=== PATIENT | female | born 1965 | race Caucasian/White ===

== ENCOUNTER 2016-12-13 21:11 | Emergency (ER) | payer SELFPAY ==
[2016-12-13] MEDS ORDERED: Sodium Chloride 0.9% 2.5 ML Syringe FLUSH PRN (21:20)
[2016-12-13] MEDS ORDERED: Sodium Chloride 0.9% 10 ML Syringe FLUSH PRN (21:20)
--- NOTE | 2016-12-13 21:24 | EDM.PDOC ---
ED HPI GENERAL MEDICAL PROBLEM - General Stated Complaint: PT HAS CHEST PAINS Time Seen by Provider: 12/13/16 21:14 - History of Present Illness INITIAL COMMENTS - FREE TEXT/NARRATIVE: HISTORY AND PHYSICAL: History of present illness: The patient is a 51-year-old female with a history of kidney stones and chronic nerve/back pain for which she takes medications and presents with complaints of mid chest pain that radiates to bilateral breast that started yesterday late morning. The patient states that the pain has been constant but waxes and wanes in intensity and is better when she lays down and worse when she does activities. She does have diaphoresis intermittently with it shortness of breath but no nausea or abdominal pain. The patient has never had a cardiac workup before. The patient states her mother had a heart attack but she is not sure of what age that was in there is no other family history. The patient smokes cigarettes but denies drug use. The patient denies any recent upper respiratory symptoms or trauma and says that the pain is difficult to describe but it is mid chest and radiates to bilateral breasts and to her back but not to her arms or jaw. Patient has been eating and drinking normally and did not take any specific medications for the pain. The patient states that she has a severe allergy to aspirin products causes her throat to swell and she "turns purple". The patient does not have any provider locally currently Please note that the patient is very vague about describing the character of the pain but she does rate it as an 8/10 in the location as above. Review of systems: As per history of present illness and below otherwise all systems reviewed and negative. Past medical history: As per history of present illness and as reviewed below otherwise noncontributory. Surgical history: As per history of present illness and as reviewed below otherwise noncontributory. Social history: No reported history of drug or alcohol abuse. Family history: As per history of present illness and as reviewed below otherwise noncontributory. Physical exam: Gen.: Well-developed well-nourished female who is nontoxic and speaking clearly and vital signs of the note by me. She is very restless in the bed to swell and rubbing it. HEENT: Atraumatic, normocephalic, negative for conjunctival pallor or scleral icterus, mucous membranes moist, throat clear, neck supple, nontender, trachea midline. Lungs: Clear to auscultation, breath sounds equal bilaterally, chest nontender. Heart: S1S2, regular, negative for clicks, rubs, or JVD. Abdomen: Soft, nondistended, nontender. NABS.Negative for masses or hepatosplenomegaly. Negative for costovertebral tenderness. Skin: No diaphoresis no rashes and normal turgor Genitourinary: Deferred. Rectal: Deferred. Extremities: Atraumatic, negative for cords or calf pain. Neurovascular unremarkable. No pedal edema or leg asymmetry Neuro: Awake, alert, oriented. Cranial nerves II through XII unremarkable. Cerebellum unremarkable. Motor and sensory unremarkable throughout. Exam nonfocal. Diagnostics: EKG which was compared to one performed on August 27, 2015, chest x-ray CBC CMP amylase lipase INR troponin rpt EKG Therapeutics: IV O2 monitor IV fluids if needed subungual nitroglycerin, aspirin will be held due to patient's stated severe allergy, morphine, nitro paste, Lovenox, NTG drip After all 3 sublingual nitroglycerin the patient states her pain went from an 8.5/10 to a 5/10 but she still very vague about the character and is actually resting comfortably with her eyes closed in the ED. We will give a dose of morphine and Nitropaste and reevaluate as well as a dose of Lovenox. 2225: I rediscussed with the patient all testing results which revealed a negative troponin and chest x-ray and a repeat EKG was unchanged from the first one. She now tells me her chest pain is a 3/10 but I did discuss with her that in light of the fact that she has EKG changes that are new since last year her age and risk factors that she would need to be transferred to [facility] for further evaluation and care as we do not have a gut snatcher on the weekend. The patient is somewhat upset with this care plan but is agreeable. She is aware that we will start her on a nitro drip and remove the Nitropaste. She currently looks very comfortable in the ED and vitals are stable. 2236: This case was discussed with Dr. Fritz in the ER at [facility] and he accepts the patient for transfer and is aware of our care plan for the transfer. Impression: Chest pain rule out ACS/unstable angina Definitive disposition and diagnosis as appropriate pending reevaluation and review of above. chest Pain Score (Numeric/FACES): 6 - Related Data Allergies Allergy/AdvReac Type Severity Reaction Status Date / Time aspirin Allergy Severe Difficulty Verified 08/02/15 18:49 Breathing cefaclor [From Ceclor] Allergy Severe Hives Verified 08/02/15 18:49 ibuprofen [From Motrin] Allergy Severe Difficulty Verified 08/02/15 18:49 Breathing naproxen Allergy Severe Difficulty Verified 08/02/15 18:49 Breathing NSAIDS (Non-Steroidal Allergy Severe Difficulty Verified 08/02/15 18:49 Anti-Inflamma Breathing Home Meds: Home Meds Acetaminophen [Tylenol] 325 mg PO ASDIRECTED PRN 07/31/15 [History] Omeprazole 20 mg PO DAILY 07/31/15 [History] Cyclobenzaprine [Flexeril] 10 mg PO DAILY 12/13/16 [History] Gabapentin [Neurontin] 300 mg PO DAILY 12/13/16 [History] Past Medical History HEENT History: Reports: None Cardiovascular History: Reports: None Respiratory History: Reports: None Gastrointestinal History: Reports: Cholelithiasis, GERD, Hiatal Hernia Genitourinary History: Reports: Renal Calculus DIRECTOR OF 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 APPLICATIONS History: Reports: Musculoskeletal History: Reports: Back Pain, Chronic Neurological History: Reports: None Psychiatric History: Reports: None Endocrine/Metabolic History: Reports: None Hematologic History: Reports: None Immunologic History: Reports: None Oncologic (Cancer) History: Reports: None Dermatologic History: Reports: None - Infectious Disease History Infectious Disease History: Reports: Chicken Pox, Measles - Past Surgical History GI Surgical History: Reports: Appendectomy, Cholecystectomy, Hernia Repair/Other Musculoskeletal Surgical History: Reports: Other (See Below) Social & Family History - Family History Family Medical History: Noncontributory HEENT: Reports: None - Tobacco Use Smoking Status *Q: Current Every Day Smoker Years of Tobacco use: 40 Packs/Tins Daily: 0.5 Used Tobacco, but Quit: No Second Hand Smoke Exposure: Yes - Alcohol Use Days Per Week of Alcohol Use: 0 - Recreational Drug Use Recreational Drug Use: No Drug Use in Last 12 Months: No ED ROS GENERAL - Review of Systems Review Of Systems: ROS reveals no pertinent complaints other than HPI. ED EXAM, GENERAL - Physical Exam Exam: See Below (See dictation) Course - Vital Signs Last Recorded V/S: Last Vital Signs Temp 36.7 C 12/13/16 21:19 Pulse 83 12/13/16 22:34 Resp 17 12/13/16 22:34 BP 118/76 12/13/16 22:34 Pulse Ox 96 12/13/16 22:34 - Orders/Labs/Meds Orders: Active Orders 24 hr Category Date Time Status Cardiac Monitoring [RC] . DIRECTED Care 12/13/16 21:19 Active Communication Order [RC] STAT Care 12/13/16 22:30 Active EKG Documentation Completion [RC] STAT Care 12/13/16 21:19 Active EKG Documentation Completion [RC] STAT Care 12/13/16 22:04 Active Oxygen Therapy, ED [RC] ASDIRECTED Care 12/13/16 21:19 Active Pulse Oximetry [RC] ASDIRECTED Care 12/13/16 21:19 Active Chest 1V Frontal [CR] Stat Exams 12/13/16 21:20 Taken Nitroglycerin/D5W [Nitroglycerin 25 MG/D5W 250 ML] 250 Med 12/13/16 22:45 Ordered ml IV TITRATE Sodium Chloride 0.9% [Normal Saline] 1,000 ml Med 12/13/16 21:45 Active IV ASDIRECTED Sodium Chloride 0.9% [Saline Flush] Med 12/13/16 21:20 Active 10 ml FLUSH ASDIRECTED PRN Sodium Chloride 0.9% [Saline Flush] Med 12/13/16 21:20 Active 2.5 ml FLUSH ASDIRECTED PRN Saline Lock Insert [OM.PC] Stat Oth 12/13/16 21:19 Ordered Medication Orders Sodium Chloride (Normal Saline) 1,000 mls @ 125 mls/hr IV ASDIRECTED ROBB Last Admin: 12/13/16 21:36 Dose: 125 mls/hr Nitroglycerin/Dextrose (Nitroglycerin 25 Mg/D5w 250 Ml) 250 mls @ 3 mls/hr IV TITRATE ROBB PRN Reason: 5 MCG/MIN Sodium Chloride (Saline Flush) 10 ml FLUSH ASDIRECTED PRN PRN Reason: Keep Vein Open Last Admin: 12/13/16 21:41 Dose: 10 ml Sodium Chloride (Saline Flush) 2.5 ml FLUSH ASDIRECTED PRN PRN Reason: Keep Vein Open Last Admin: 12/13/16 21:41 Dose: 2.5 ml Labs: Laboratory Tests 12/13/16 12/13/16 12/13/16 Range/Units 21:22 21:22 21:22 WBC 10.88 (4.0-11.0) K/uL RBC 4.84 (4.30-5.90) M/uL Hgb 15.0 (12.0-16.0) g/dL Hct 43.3 (36.0-46.0) % MCV 89.5 (80.0-98.0) fL MCH 31.0 (27.0-32.0) pg MCHC 34.6 (31.0-37.0) g/dL RDW Std Deviation 45.5 (28.0-62.0) fl RDW Coeff of Ingrid 14 (11.0-15.0) % Plt Count 278 (150-400) K/uL MPV 9.60 (7.40-12.00) fL Neut % (Auto) 66.9 (48.0-80.0) % Lymph % (Auto) 25.8 (16.0-40.0) % [place] % (Auto) 5.8 (0.0-15.0) % Eos % (Auto) 1.3 (0.0-7.0) % Baso % (Auto) 0.2 (0.0-1.5) % Neut # (Auto) 7.3 H (1.4-5.7) K/uL Lymph # (Auto) 2.8 H (0.6-2.4) K/uL [place] # (Auto) 0.6 (0.0-0.8) K/uL Eos # (Auto) 0.1 (0.0-0.7) K/uL Baso # (Auto) 0.0 (0.0-0.1) K/uL Nucleated RBC % 0.0 /100WBC Nucleated RBCs # 0 K/uL INR 0.98 (0.86-1.11) Sodium 141 (136-146) mmol/L Potassium 3.9 (3.5-5.1) mmol/L Chloride 107 (98-110) mmol/L Carbon Dioxide 25 (21-31) mmol/L BUN 20 (6.0-23.0) mg/dL Creatinine 0.8 (0.6-1.5) mg/dL Est Cr Clr Drug Dosing 70.23 mL/min Estimated GFR (MDRD) > 60.0 ml/min Glucose 117 H (60-110) mg/dL Calcium 8.9 (8.8-10.8) mg/dL Total Bilirubin 0.4 (0.1-1.5) mg/dL AST 14 (5-40) IU/L ALT 12 (8-54) IU/L Alkaline Phosphatase 136 (40-150) Troponin I (0.0-0.29) NG/ML Total Protein 7.4 (6.0-8.0) g/dL Albumin 4.1 (3.5-5.0) g/dL Globulin 3.3 (2.0-3.5) g/dL Albumin/Globulin Ratio 1.2 L (1.3-2.8) Amylase 51 (10-90) U/L Lipase 10 (7-80) U/L 12/13/16 Range/Units 21:22 WBC (4.0-11.0) K/uL RBC (4.30-5.90) M/uL Hgb (12.0-16.0) g/dL Hct (36.0-46.0) % MCV (80.0-98.0) fL MCH (27.0-32.0) pg MCHC (31.0-37.0) g/dL RDW Std Deviation (28.0-62.0) fl RDW Coeff of Ingrid (11.0-15.0) % Plt Count (150-400) K/uL MPV (7.40-12.00) fL Neut % (Auto) (48.0-80.0) % Lymph % (Auto) (16.0-40.0) % [place] % (Auto) (0.0-15.0) % Eos % (Auto) (0.0-7.0) % Baso % (Auto) (0.0-1.5) % Neut # (Auto) (1.4-5.7) K/uL Lymph # (Auto) (0.6-2.4) K/uL [place] # (Auto) (0.0-0.8) K/uL Eos # (Auto) (0.0-0.7) K/uL Baso # (Auto) (0.0-0.1) K/uL Nucleated RBC % /100WBC Nucleated RBCs # K/uL INR (0.86-1.11) Sodium (136-146) mmol/L Potassium (3.5-5.1) mmol/L Chloride (98-110) mmol/L Carbon Dioxide (21-31) mmol/L BUN (6.0-23.0) mg/dL Creatinine (0.6-1.5) mg/dL Est Cr Clr Drug Dosing mL/min Estimated GFR (MDRD) ml/min Glucose (60-110) mg/dL Calcium (8.8-10.8) mg/dL Total Bilirubin (0.1-1.5) mg/dL AST (5-40) IU/L ALT (8-54) IU/L Alkaline Phosphatase (40-150) Troponin I < 0.10 (0.0-0.29) NG/ML Total Protein (6.0-8.0) g/dL Albumin (3.5-5.0) g/dL Globulin (2.0-3.5) g/dL Albumin/Globulin Ratio (1.3-2.8) Amylase (10-90) U/L Lipase (7-80) U/L Meds: Medications Generic Name Dose Route Start Last Admin Trade Name Freq PRN Reason Stop Dose Admin Sodium Chloride 1,000 mls @ 125 mls/hr 12/13/16 21:45 12/13/16 21:36 Normal Saline IV 125 mls/hr ASDIRECTED ROBB Administration Nitroglycerin/Dextrose 250 mls @ 3 mls/hr 12/13/16 22:45 Nitroglycerin 25 Mg/D5w 250 Ml IV TITRATE ROBB 5 MCG/MIN Sodium Chloride 10 ml 12/13/16 21:20 12/13/16 21:41 Saline Flush FLUSH 10 ml ASDIRECTED PRN Administration Keep Vein Open Sodium Chloride 2.5 ml 12/13/16 21:20 12/13/16 21:41 Saline Flush FLUSH 2.5 ml ASDIRECTED PRN Administration Keep Vein Open Discontinued Medications Generic Name Dose Route Start Last Admin Trade Name Freq PRN Reason Stop Dose Admin Enoxaparin Sodium 75 mg 12/13/16 21:55 12/13/16 22:12 Lovenox SUBCUT 12/13/16 21:56 75 mg ONETIME ONE Administration Morphine Sulfate 2 mg 12/13/16 21:55 12/13/16 22:12 Morphine IVPUSH 12/13/16 21:56 2 mg ONETIME ONE Administration Nitroglycerin 0.4 mg 12/13/16 21:30 12/13/16 21:49 Nitrostat SL 12/13/16 21:41 0.4 mg Q5M ROBB Administration Nitroglycerin 1 gm 12/13/16 21:55 12/13/16 22:12 Nitro-Bid 2% TOP 12/13/16 21:56 1 gm ONETIME ONE Administration Departure - Departure Time of Disposition: 22:40 Disposition: DC/Tfer to Acute Hospital 02 Condition: Good Clinical Impression: Acute coronary syndrome, Unstable angina - Discharge Information - My Orders Last 24 Hours: My Active Orders 12/13/16 21:19 Cardiac Monitoring [RC] . DIRECTED EKG Documentation Completion [RC] STAT Oxygen Therapy, ED [RC] ASDIRECTED Pulse Oximetry [RC] ASDIRECTED Saline Lock Insert [OM.PC] Stat 12/13/16 21:20 Chest 1V Frontal [CR] Stat Sodium Chloride 0.9% [Saline Flush] 10 ml FLUSH ASDIRECTED PRN Sodium Chloride 0.9% [Saline Flush] 2.5 ml FLUSH ASDIRECTED PRN 12/13/16 21:45 Sodium Chloride 0.9% [Normal Saline] 1,000 ml IV ASDIRECTED 12/13/16 22:04 EKG Documentation Completion [RC] STAT 12/13/16 22:30 Communication Order [RC] STAT 12/13/16 22:45 Nitroglycerin/D5W [Nitroglycerin 25 MG/D5W 250 ML] 250 ml IV TITRATE - Assessment/Plan Last 24 Hours: My Active Orders 12/13/16 21:19 Cardiac Monitoring [RC] . DIRECTED EKG Documentation Completion [RC] STAT Oxygen Therapy, ED [RC] ASDIRECTED Pulse Oximetry [RC] ASDIRECTED Saline Lock Insert [OM.PC] Stat 12/13/16 21:20 Chest 1V Frontal [CR] Stat Sodium Chloride 0.9% [Saline Flush] 10 ml FLUSH ASDIRECTED PRN Sodium Chloride 0.9% [Saline Flush] 2.5 ml FLUSH ASDIRECTED PRN 12/13/16 21:45 Sodium Chloride 0.9% [Normal Saline] 1,000 ml IV ASDIRECTED 12/13/16 22:04 EKG Documentation Completion [RC] STAT 12/13/16 22:30 Communication Order [RC] STAT 12/13/16 22:45 Nitroglycerin/D5W [Nitroglycerin 25 MG/D5W 250 ML] 250 ml IV TITRATE
[2016-12-13] MEDS: Nitroglycerin 0.4 MG Tab.SL SL SCH ×3 (21:38→21:49)
[2016-12-13] MEDS ORDERED: Sodium Chloride 0.9% 1,000 ML IV SCH (21:45)
[2016-12-13 21:52] LABS: CHLORIDE,CL 107 mmol/L (98-110); SODIUM,NA 141 mmol/L (136-146)
[2016-12-13] MEDS ORDERED: Nitroglycerin 2% Oint 1 GM UD Packet TOP ONE (21:55)
[2016-12-13] MEDS ORDERED: Enoxaparin 100 MG/1 ML Syringe SUBCUT ONE (21:55)
[2016-12-13] MEDS ORDERED: Morphine 2 MG/ML Syringe IVPUSH ONE (21:55)
[2016-12-13] MEDS ORDERED: Nitroglycerin/D5W 25 MG/250 ML BOTTLE IV SCH (22:45)
[2016-12-13 23:26] VITALS: BP 121/73
--- NOTE | 2016-12-15 11:37 | CR ---
EXAM DATE: 12/13/16 PATIENT'S AGE: 51 Patient: KEMAL MONTES Facility: [place], [place] Site . Site : 1965 Study: XRay Chest [id number]/15/2017 9:40:14 PM Ordering Physician: Dusty Hu Final Report: INDICATION: CHEST PAIN SINCE YESTERDAY TECHNIQUE: Chest 1 view. COMPARISON: 07/19/11 FINDINGS: Cardiovascular and mediastinum: Heart size and vasculature are normal in caliber and appearance. Mediastinum is within normal limits. Lungs and pleural space: Lungs are clear. No sign of infiltrate or mass. No sign of pleural effusion. No pneumothorax. Bones and soft tissues: No significant findings. IMPRESSION: Unremarkable chest. Dictated by: Chaka Marin MD @ 12/13/2016 21:43:10 (Electronic Signature) Report Signed by Proxy. [facility] MEDICAL CENTERBhavani
== END 2016-12-13 23:15 ==
LOC: MW.ED 21:11
DX: I24.9 Acute ischemic heart disease, unspecified (principal); I20.0 Unstable angina; K21.9 Gastro-esophageal reflux disease without esophagitis; F17.210 Nicotine dependence, cigarettes, uncomplicated; Z88.8 Allergy status to other drugs, medicaments and biological substances; Z79.899 Other long term (current) drug therapy; Z87.442 Personal history of urinary calculi; Z98.890 Other specified postprocedural states
CPT/HCPCS: 36415; 71010; 80053; 82150; 83690; 84484; 85025; 85610; 93005; 96361; 96365; 96375; 99285; A9270; J1650; J2270; J7040

== ENCOUNTER 2016-12-25 14:53 | Emergency (ER) | payer SELFPAY ==
--- NOTE | 2016-12-25 14:55 | EDM.PDOC ---
ED HPI GENERAL MEDICAL PROBLEM - General Stated Complaint: NEEDS ASTHMA MEDICATION Time Seen by Provider: 12/25/16 14:54 Source of Information: Reports: Patient History Limitations: Reports: No Limitations - History of Present Illness INITIAL COMMENTS - FREE TEXT/NARRATIVE: HISTORY AND PHYSICAL: []51-year-old female presenting with need for refill of her gabapentin. Patient is known to me from years before previous. 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 Past medical history: As per history of present illness and as reviewed below otherwise noncontributory. Surgical history: As per history of present illness and as reviewed below otherwise noncontributory. Social history: No reported history of drug or alcohol abuse. Family history: As per history of present illness and as reviewed below otherwise noncontributory. Physical exam: Alert and oriented female has tobacco odor present Answering questions appropriately in full sentences. HEENT: Atraumatic, normocehpalic, pupils reactive, negative for conjunctival pallor or scleral icterus, mucous membranes moist, throat clear, neck supple, nontender, trachea midline. Lungs: Clear to auscultation, breath sounds equal bilaterally, chest non tender. Heart: S1S2, regular, negative for clicks, rubs, or JVD. Extremities: Atraumatic, negative for cords or calf pain. Patient is sitting rubbing her thigh on the right related to her nerve pain Neurovascular unremarkable. Neuro: Awake, alert, oriented. Cranial nerves II through XII unremarkable. Cerebellum unremarkable. Motor and sensory unremarkable throughout. Exam nonfocal. Patient walked into the emergency department sitting well rubbing her legs not having any difficulty with movement Diagnostics: [] Therapeutics: [] Impression: [Peripheral neuropathy] Plan: []Renewed gabapentin until January 02 Definitive disposition and diagnosis as appropriate pending reevaluation and review of above. Location: Reports: Back Quality: Reports: Ache Severity: Moderate Worsens with: Reports: Movement Associated Symptoms: Reports: No Other Symptoms Bilateral Leg Pain Score (Numeric/FACES): 7 - Related Data Allergies Allergy/AdvReac Type Severity Reaction Status Date / Time aspirin Allergy Severe Difficulty Verified 12/25/16 15:03 Breathing cefaclor [From Ceclor] Allergy Severe Hives Verified 12/25/16 15:03 ibuprofen [From Motrin] Allergy Severe Difficulty Verified 12/25/16 15:03 Breathing naproxen Allergy Severe Difficulty Verified 12/25/16 15:03 Breathing NSAIDS (Non-Steroidal Allergy Severe Difficulty Verified 12/25/16 15:03 Anti-Inflamma Breathing Home Meds: Home Meds Acetaminophen [Tylenol] 325 mg PO ASDIRECTED PRN 07/31/15 [History] Omeprazole 20 mg PO DAILY 07/31/15 [History] Gabapentin [Neurontin] 300 mg PO DAILY 12/13/16 [History] Gabapentin [Neurontin] 300 mg PO TID #24 cap 12/25/16 [Rx] Past Medical History HEENT History: Reports: None Cardiovascular History: Reports: None Respiratory History: Reports: None Gastrointestinal History: Reports: Cholelithiasis, GERD, Hiatal Hernia Genitourinary History: Reports: Renal Calculus 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: Musculoskeletal History: Reports: Back Pain, Chronic Neurological History: Reports: None Psychiatric History: Reports: None Endocrine/Metabolic History: Reports: None Hematologic History: Reports: None Immunologic History: Reports: None Oncologic (Cancer) History: Reports: None Dermatologic History: Reports: None - Infectious Disease History Infectious Disease History: Reports: Chicken Pox, Measles - Past Surgical History GI Surgical History: Reports: Appendectomy, Cholecystectomy, Hernia Repair/Other Musculoskeletal Surgical History: Reports: Other (See Below) Social & Family History - Family History Family Medical History: Noncontributory HEENT: Reports: None - Tobacco Use Smoking Status *Q: Current Every Day Smoker Years of Tobacco use: 40 Packs/Tins Daily: 0.5 Used Tobacco, but Quit: No Second Hand Smoke Exposure: Yes - Alcohol Use Days Per Week of Alcohol Use: 0 - Recreational Drug Use Recreational Drug Use: No Drug Use in Last 12 Months: No ED ROS GENERAL - Review of Systems Review Of Systems: ROS reveals no pertinent complaints other than HPI. ED EXAM, GENERAL - Physical Exam Exam: See Below (See dictation) Course - Vital Signs Last Recorded V/S: Last Vital Signs Temp 35.9 C 12/25/16 15:06 Pulse 100 12/25/16 15:06 Resp 16 12/25/16 15:06 BP 136/102 H 12/25/16 15:06 Pulse Ox 96 12/25/16 15:06 Departure - Departure Time of Disposition: 15:18 Disposition: Home, Self-Care 01 Condition: Good Clinical Impression: Neuropathy - Discharge Information Prescriptions: Gabapentin [Neurontin] 300 mg PO TID #24 cap
== END 2016-12-25 15:32 | disposition home or self-care (01) ==
LOC: MW.ED 14:53
CPT/HCPCS: 99283

== ENCOUNTER 2018-12-12 22:33 | Emergency (ER) | payer MEDICAID ==
[2018-12-12 23:16] VITALS: BP 121/79
[2018-12-12] MEDS ORDERED: Gabapentin 300 MG Cap PO ONE (23:24)
[2018-12-12] MEDS ORDERED: traMADol 50 MG Tab PO ONE (23:26)
--- NOTE | 2018-12-12 23:26 | EDM.PDOC ---
ED HPI GENERAL MEDICAL PROBLEM - General Chief Complaint: Lower Extremity Injury/Pain Stated Complaint: RT LEG HURTS Time Seen by Provider: 12/12/18 23:25 Source of Information: Reports: Patient - History of Present Illness INITIAL COMMENTS - FREE TEXT/NARRATIVE: HISTORY AND PHYSICAL: History of present illness: [Patient with history of hip bursitis presents with right hip pain 5 out of 10 radiating to the ED worsened by movement and walking better at rest, no redness or inflammation of the joint no warmth no open lesion or bruising she denies trauma Pain began insidiously throughout the day while doing laundry, she has had an increase in activity as she has been helping her sister was postoperative for a surgery Has no other symptoms such as fever nausea vomiting diarrhea constipation chest pain shortness breath headache dizziness or palpitation no bowel or urine symptoms She notes she is out of her Neurontin since yesterday] Review of systems: As per history of present illness and below otherwise all systems reviewed and negative. Past medical history: As per history of present illness and as reviewed below otherwise noncontributory. Surgical history: As per history of present illness and as reviewed below otherwise noncontributory. Social history: No reported history of drug or alcohol abuse. Family history: As per history of present illness and as reviewed below otherwise noncontributory. Physical exam: HEENT: Atraumatic, normocephalic, pupils reactive, negative for conjunctival pallor or scleral icterus, mucous membranes moist, throat clear, neck supple, nontender, trachea midline. Lungs: Clear to auscultation, breath sounds equal bilaterally, chest nontender. Heart: S1S2, regular, negative for clicks, rubs, or JVD. Abdomen: Soft, nondistended, nontender. Negative for masses or hepatosplenomegaly. Negative for costovertebral tenderness. Pelvis: Stable nontender. Genitourinary: Deferred. Rectal: Deferred. Extremities: Atraumatic, negative for cords or calf pain. Neurovascular unremarkable. Right hip as per history of present illness Neuro: Awake, alert, oriented. Cranial nerves II through XII unremarkable. Cerebellum unremarkable. Motor and sensory unremarkable throughout. Exam nonfocal. Diagnostics: [Right hip plain films ] Therapeutics: [Neurontin 300 mg by mouth 3 times a day #30 no refill One by mouth now Tramadol ] Impression: [ right hip pain ] Definitive disposition and diagnosis as appropriate pending reevaluation and review of above. Right Hip Pain Score (Numeric/FACES): 10 - Related Data Allergies Allergy/AdvReac Type Severity Reaction Status Date / Time aspirin Allergy Severe Difficulty Verified 12/12/18 23:19 Breathing cefaclor [From Ceclor] Allergy Severe Hives Verified 12/12/18 23:19 ibuprofen [From Motrin] Allergy Severe Difficulty Verified 12/12/18 23:19 Breathing naproxen Allergy Severe Difficulty Verified 12/12/18 23:19 Breathing NSAIDS (Non-Steroidal Allergy Severe Difficulty Verified 12/12/18 23:19 Anti-Inflamma Breathing Home Meds: Home Meds Acetaminophen [Tylenol] 325 mg PO ASDIRECTED PRN 07/31/15 [History] Omeprazole 20 mg PO DAILY 07/31/15 [History] Gabapentin [Neurontin] 300 mg PO TID #24 cap 12/25/16 [Rx] Past Medical History HEENT History: Reports: None Cardiovascular History: Reports: None Respiratory History: Reports: None Gastrointestinal History: Reports: Cholelithiasis, GERD, Hiatal Hernia Genitourinary History: Reports: Renal Calculus 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: totaly hyst Musculoskeletal History: Reports: Back Pain, Chronic Neurological History: Reports: None Psychiatric History: Reports: None Endocrine/Metabolic History: Reports: None Hematologic History: Reports: None Immunologic History: Reports: None Oncologic (Cancer) History: Reports: None Dermatologic History: Reports: None - Infectious Disease History Infectious Disease History: Reports: Chicken Pox, Measles - Past Surgical History GI Surgical History: Reports: Appendectomy, Cholecystectomy, Hernia Repair/Other Musculoskeletal Surgical History: Reports: Other (See Below) Social & Family History - Family History Family Medical History: Noncontributory HEENT: Reports: None - Tobacco Use Smoking Status *Q: Current Every Day Smoker Years of Tobacco use: 30 Packs/Tins Daily: 0.2 - Caffeine Use Caffeine Use: Reports: Coffee - Recreational Drug Use Recreational Drug Use: No Review of Systems - Review of Systems Review Of Systems: See Below ED EXAM, GENERAL - Physical Exam Exam: See Below Course - Vital Signs Last Recorded V/S: Last Vital Signs Temp 97.2 F 12/12/18 23:14 Pulse 78 12/12/18 23:14 Resp 18 12/12/18 23:14 BP 121/79 12/12/18 23:14 Pulse Ox 97 12/12/18 23:14 - Orders/Labs/Meds Meds: Medications Discontinued Medications Generic Name Dose Route Start Last Admin Trade Name Karla PRN Reason Stop Dose Admin Gabapentin 300 mg 12/12/18 23:24 12/13/18 00:06 Neurontin PO 12/12/18 23:25 300 mg ONETIME ONE Administration Tramadol HCl 50 mg 12/12/18 23:26 12/12/18 23:44 Ultram PO 12/12/18 23:27 50 mg ONETIME ONE Administration Departure - Departure Time of Disposition: 01:12 Disposition: Home, Self-Care 01 Condition: Good Clinical Impression: Right hip pain, Muscle spasm - Discharge Information Referrals: PCP,None [Primary Care Provider] - Forms: ED Department Discharge Additional Instructions: Medication as prescribed Return if symptoms persist or worsen Follow-up with orthopedist, call phone number below to schedule appropriate follow-up [facility] [address], [address] [place] [address] my orthopedic The following information is given to patients seen in the emergency department who are being discharged to home. This information is to outline your options for follow-up care. We provide all patients seen in our emergency department with a follow-up referral. The need for follow-up, as well as the timing and circumstances, are variable depending upon the specifics of your emergency department visit. If you don't have a primary care physician on staff, we will provide you with a referral. We always advise you to contact your personal physician following an emergency department visit to inform them of the circumstance of the visit and for follow-up with them and/or the need for any referrals to a consulting specialist. The emergency department will also refer you to a specialist when appropriate. This referral assures that you have the opportunity for follow-up care with a specialist. All of these measure are taken in an effort to provide you with optimal care, which includes your follow-up. Under all circumstances we always encourage you to contact your private physician who remains a resource for coordinating your care. When calling for follow-up care, please make the office aware that this follow-up is from your recent emergency room visit. If for any reason you are refused follow-up, please contact the [facility] emergency department at and asked to speak to the emergency department charge nurse.
--- NOTE | 2018-12-13 00:52 | CR ---
INDICATION: Hip pain TECHNIQUE: Hip radiograph 2 views right COMPARISON: None FINDINGS: Bone: No acute fractures or aggressive bone lesions are identified. Joint: Mild joint space narrowing with osteophyte formation surrounding the femoral head noted, consistent with osteoarthritis. The visualized sacroiliac joints are unremarkable in appearance. The pubic symphysis is normal in appearance. Soft tissue: Unremarkable. No radiopaque foreign bodies are seen. IMPRESSION: 1. No acute osseous injuries or abnormalities are noted. Dictated by Gaurang Zaman MD @ 12/13/2018 12:49:43 AM Dictated by: Gaurang Zaman MD @ 12/13/2018 00:49:48 (Electronically Signed)
== END 2018-12-13 01:42 | disposition home or self-care (01) ==
LOC: MW.ED 22:33
DX: M25.551 Pain in right hip (principal); M62.838 Other muscle spasm; K21.9 Gastro-esophageal reflux disease without esophagitis; F17.210 Nicotine dependence, cigarettes, uncomplicated; Z90.49 Acquired absence of other specified parts of digestive tract; Z88.6 Allergy status to analgesic agent; Z88.8 Allergy status to other drugs, medicaments and biological substances; Z88.1 Allergy status to other antibiotic agents; Z79.899 Other long term (current) drug therapy
CPT/HCPCS: 73502; 99283; A9270

== ENCOUNTER 2019-01-05 15:13 | Emergency (ER) | payer MEDICAID ==
[2019-01-05 15:30] VITALS: BP 181/104; PULSE 89
--- NOTE | 2019-01-05 15:34 | EDM.PDOC ---
ED HPI GENERAL MEDICAL PROBLEM - General Chief Complaint: Medication Administration Stated Complaint: BILATERAL LEG PAIN Time Seen by Provider: 01/05/19 15:25 Source of Information: Reports: Patient History Limitations: Reports: No Limitations - History of Present Illness INITIAL COMMENTS - FREE TEXT/NARRATIVE: History of present illness: []Patient is here for a med refill for Neurontin. She takes it for her bilateral leg pain and has run out. Review of systems: As per history of present illness and below otherwise all systems reviewed and negative. Past medical history: As per history of present illness and as reviewed below otherwise noncontributory. Surgical history: As per history of present illness and as reviewed below otherwise noncontributory. Social history: No reported history of drug or alcohol abuse. Family history: As per history of present illness and as reviewed below otherwise noncontributory. Physical exam: General: Well developed, well nourished in NAD HEENT: Atraumatic, normocephalic, pupils reactive, negative for conjunctival pallor or scleral icterus, mucous membranes moist, throat clear, neck supple, nontender, trachea midline. Lungs: Clear to auscultation, breath sounds equal bilaterally, chest nontender. Heart: S1S2, regular, negative for clicks, rubs, or JVD. Abdomen: NABS, Soft, nondistended, nontender. Negative for masses or hepatosplenomegaly. Negative for costovertebral tenderness. Pelvis: Stable nontender. Genitourinary: Deferred. Rectal: Deferred. Extremities: Atraumatic, negative for cords or calf pain. Neurovascular unremarkable. Neuro: Awake, alert, oriented. Cranial nerves II through XII unremarkable. Cerebellum unremarkable. Motor and sensory unremarkable throughout. Exam nonfocal. Skin:warm and dry Diagnostics: None Therapeutics: None ED Course: Stable, I told the patient I will fill this prescription one time only and patient is on this medication chronically should be able to plan accordingly and make appointments with primary care physician prior to running out of medications. Impression: Medication refill Prescriptions: Neurontin Plan: Take meds as directed, follow up with your primary care physician, return to ER if symptoms worsen or change. Definitive disposition and diagnosis as appropriate pending reevaluation and review of above. Bilateral Leg Pain Score (Numeric/FACES): 10 - Related Data Allergies Allergy/AdvReac Type Severity Reaction Status Date / Time aspirin Allergy Severe Difficulty Verified 01/05/19 15:30 Breathing cefaclor [From Ceclor] Allergy Severe Hives Verified 01/05/19 15:30 ibuprofen [From Motrin] Allergy Severe Difficulty Verified 01/05/19 15:30 Breathing naproxen Allergy Severe Difficulty Verified 01/05/19 15:30 Breathing NSAIDS (Non-Steroidal Allergy Severe Difficulty Verified 01/05/19 15:30 Anti-Inflamma Breathing Home Meds: Home Meds Acetaminophen [Tylenol] 325 mg PO ASDIRECTED PRN 07/31/15 [History] Omeprazole 20 mg PO DAILY 07/31/15 [History] Gabapentin [Neurontin] 300 mg PO TID #24 cap 12/25/16 [Rx] Gabapentin [Neurontin] 300 mg PO BID #30 capsule 01/05/19 [Rx] Past Medical History HEENT History: Reports: None Cardiovascular History: Reports: None Respiratory History: Reports: None Gastrointestinal History: Reports: Cholelithiasis, GERD, Hiatal Hernia Genitourinary History: Reports: Renal Calculus 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: totaly hyst Musculoskeletal History: Reports: Back Pain, Chronic Neurological History: Reports: None Psychiatric History: Reports: None Endocrine/Metabolic History: Reports: None Hematologic History: Reports: None Immunologic History: Reports: None Oncologic (Cancer) History: Reports: None Dermatologic History: Reports: None - Infectious Disease History Infectious Disease History: Reports: Chicken Pox, Measles - Past Surgical History GI Surgical History: Reports: Appendectomy, Cholecystectomy, Hernia Repair/Other Musculoskeletal Surgical History: Reports: Other (See Below) Social & Family History - Family History Family Medical History: Noncontributory HEENT: Reports: None - Caffeine Use Caffeine Use: Reports: Coffee ED ROS GENERAL - Review of Systems Review Of Systems: See Below ED EXAM, GENERAL - Physical Exam Exam: See Below Course - Vital Signs Last Recorded V/S: Last Vital Signs Temp 96.6 F 01/05/19 15:28 Pulse 89 01/05/19 15:28 Resp 18 01/05/19 15:28 BP 181/104 H 01/05/19 15:28 Pulse Ox 96 01/05/19 15:28 Departure - Departure Time of Disposition: 15:37 Disposition: Home, Self-Care 01 Condition: Good Clinical Impression: Medication refill - Discharge Information *PRESCRIPTION DRUG MONITORING PROGRAM REVIEWED*: No *COPY OF PRESCRIPTION DRUG MONITORING REPORT IN PATIENT MICHELLE: No Prescriptions: Gabapentin [Neurontin] 300 mg PO BID #30 capsule Referrals: PCP,None [Primary Care Provider] - Forms: ED Department Discharge Additional Instructions: The following information is given to patients seen in the emergency department who are being discharged to home. This information is to outline your options for follow-up care. We provide all patients seen in our emergency department with a follow-up referral. The need for follow-up, as well as the timing and circumstances, are variable depending upon the specifics of your emergency department visit. If you don't have a primary care physician on staff, we will provide you with a referral. We always advise you to contact your personal physician following an emergency department visit to inform them of the circumstance of the visit and for follow-up with them and/or the need for any referrals to a consulting specialist. The emergency department will also refer you to a specialist when appropriate. This referral assures that you have the opportunity for follow-up care with a specialist. All of these measure are taken in an effort to provide you with optimal care, which includes your follow-up. Under all circumstances we always encourage you to contact your private physician who remains a resource for coordinating your care. When calling for follow-up care, please make the office aware that this follow-up is from your recent emergency room visit. If for any reason you are refused follow-up, please contact the [facility] Emergency Department at and asked to speak to the emergency department charge nurse. [facility] [address] [place] [id number]
== END 2019-01-05 15:42 | disposition home or self-care (01) ==
LOC: MW.ED 15:13
DX: Z76.0 Encounter for issue of repeat prescription (principal); M79.604 Pain in right leg; M79.605 Pain in left leg; K21.9 Gastro-esophageal reflux disease without esophagitis; Z88.6 Allergy status to analgesic agent; Z88.1 Allergy status to other antibiotic agents; Z79.899 Other long term (current) drug therapy; Z88.8 Allergy status to other drugs, medicaments and biological substances; Z90.49 Acquired absence of other specified parts of digestive tract
CPT/HCPCS: 99283

== ENCOUNTER 2019-03-16 13:13 | Emergency (ER) | payer MEDICAID ==
[2019-03-16] MEDS ORDERED: Sodium Chloride 0.9% 10 ML Syringe FLUSH PRN (13:47)
[2019-03-16] MEDS ORDERED: Sodium Chloride 0.9% 2.5 ML Syringe FLUSH PRN (13:47)
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
[2019-03-16] MEDS ORDERED: Ondansetron 4 MG Tab.DIS PO ONE (14:06)
[2019-03-16 14:33] LABS: BLOOD UREA NITROGEN,BUN 13 mg/dL (7.0-18.0); CARBON DIOXIDE,CO2 29.2 mmol/L (21.0-32.0); CHLORIDE,CL 101 mmol/L (98-107); GLUCOSE RANDOM 181 mg/dL (74-106); POTASSIUM,K 3.9 mmol/L (3.5-5.1); SODIUM,NA 138 mmol/L (136-145)
--- NOTE | 2019-03-16 14:54 | CT ---
Head CT Technique: Multiple axial sections through the brain were obtained. Intravenous contrast was not utilized. Comparison: No prior intracranial imaging. Findings: Ventricles along with basal cisterns and sulci over convexities are within normal limits for the patient's age. No abnormal parenchymal densities are seen. No evidence of intracranial hemorrhage. No midline shift or mass effect is seen. Bone window settings were reviewed which shows no acute calvarial abnormality. Visualized paranasal sinuses show nothing acute. Mastoid sinuses are clear. Impression: Nothing acute is appreciated on noncontrast head CT exam. Diagnostic code #1 MTDD
--- NOTE | 2019-03-16 15:20 | CR ---
Chest: Two views of the chest were obtained. Comparison: No prior chest x-rays available. Heart size and mediastinum are normal. Nodule is noted within the right mid chest measuring 1.3 cm. Lungs otherwise are clear. Bony structures are grossly intact. Impression: 1. A 1.3 nodule within the right midlung. Noncontrast chest CT recommended to further evaluate. 2. Other portions of the PA chest x-ray are unremarkable. Diagnostic code #9 MTDD
--- NOTE | 2019-03-16 15:21 | CR ---
Thoracolumbar spine: Lateral view of the lumbar spine was obtained as well as additional lateral view centered more to the thoracolumbar junction. AP view of the lumbar and thoracolumbar spine was obtained. Comparison: No previous study. Mild spondylolisthesis is seen at L4-L5 measuring around 3-4 mm. Disc spaces are fairly well preserved within the lumbar spine. Mild disc space narrowing is scattered within the lower thoracic spine. Minimal scattered endplate osteophytes are seen with mild scoliosis. Pedicles are intact. No discrete fracture is seen. Diffuse atherosclerotic calcification seen within the abdominal aorta. Surgical clips are seen from prior cholecystectomy. Surgical clips are also noted at the gastroesophageal junction. Impression: 1. Mild degenerative change and mild scoliosis. 2. Prior abdominal surgery. Diagnostic code #2 MTDD
[2019-03-16 15:49] VITALS: BP 132/97; PULSE 82
== END 2019-03-16 15:50 | disposition home or self-care (01) ==
LOC: MW.ED 13:13
DX: S30.0XXA Contusion of lower back and pelvis, initial encounter (principal); M54.6 Pain in thoracic spine; I10 Essential (primary) hypertension; K21.9 Gastro-esophageal reflux disease without esophagitis; M19.90 Unspecified osteoarthritis, unspecified site; F17.210 Nicotine dependence, cigarettes, uncomplicated; Z88.8 Allergy status to other drugs, medicaments and biological substances; Z88.1 Allergy status to other antibiotic agents; Z79.899 Other long term (current) drug therapy; X99.8XXA Assault by other sharp object, initial encounter
CPT/HCPCS: 36415; 70450; 71045; 72080; 80053; 81001; 85025; 85610; 99284; A9270

== ENCOUNTER 2020-05-26 14:56 | Emergency (ER) | payer MEDICAID ==
[2020-05-26] MEDS ORDERED: ALPRAZolam 0.5 MG Tab PO ONE (15:41)
--- NOTE | 2020-05-26 16:02 | EDM.PDOC ---
ED HPI GENERAL MEDICAL PROBLEM - General Chief Complaint: Headache Stated Complaint: SICK Time Seen by Provider: 05/26/20 15:27 Source of Information: Reports: Patient History Limitations: Reports: No Limitations - History of Present Illness INITIAL COMMENTS - FREE TEXT/NARRATIVE: HISTORY AND PHYSICAL: History of present illness: Patient is a 54-year-old female who presents to the emergency room with complaints of right temporal pain that wraps around her scalp into the base of her neck. She states she has had this headache pain for approximately 2 months. She is currently living in [place] and has had a "full work-up" for this headache (labs, Head CT, etc..) And does have a referral to see a neurologist and ear nose and throat for her various complaints. She states she was given a prescription for a muscle relaxer for this pain but it is not improving. She is currently visiting here for the holidays does not return to [place] for another week. She states she is taking narcotics along with gabapentin for her fibromyalgia/chronic pain in those medications as well or not helping her discomfort. Patient denies any fever, chills, change in vision, syncope or near syncope. She denies any numbness, tingling, saddle paresthesia or weakness. Denies any urinary or fecal incontinence. Denies any recent falls. Denies any chest pain, back pain, shortness of breath or cough. Denies any abdominal pain, nausea, vomiting, diarrhea, constipation or dysuria. Has not noted any blood in urine or stool. Patient has been eating and drinking appropriately. Review of systems: As per history of present illness and below otherwise all systems reviewed and negative. Past medical history: As per history of present illness and as reviewed below otherwise noncontri butory. Surgical history: As per history of present illness and as reviewed below otherwise noncontributory. Social history: See social history for further information Family history: As per history of present illness and as reviewed below otherwise noncontributory. Physical exam: General: Well developed and well nourished. Alert and orientated x 3. Nontoxic in appearance and in no acute distress. Vital signs are stable and have been reviewed by me. Nursing notes were reviewed. HEENT: Atraumatic, normocephalic, pupils equal and reactive bilaterally, negative for conjunctival pallor or scleral icterus, mucous membranes moist, TMs normal bilaterally, throat clear, neck supple, nontender, trachea midline. No drooling or trismus noted. No meningeal signs. No hot potato voice noted. Lungs: Clear to auscultation, breath sounds equal bilaterally, chest nontender. Normal work of breathing, no accessory muscles used. Heart: S1S2, regular rate and rhythm without overt murmur Abdomen: Soft, nondistended, nontender. Negative for masses or hepatosplenomegaly. Negative for costovertebral tenderness. C-spine/Back: No pinpoint vertebral tenderness upon palpation. No crepitus, step-offs or obvious deformities. Patient is ambulatory into the emergency room without difficulty or deficit. Able to rock back on heels and walk on toes. Denies any urinary or fecal incontinence. Denies any numbness, tingling or saddle paresthesia. No concerns of serious infection, fracture or cord compression, or cauda equina syndrome. Deep tendon reflexes brisk bilaterally. Skin: Intact, warm, dry. No lesions or rashes noted. Hematologic: No petechiae or purpra. Mucosa appropriate color and normal nail bed color and refill. Extremities: Atraumatic, moves all extremities per self without difficulty or deficits, negative for cords or calf pain. Neurovascular unremarkable. Neuro: Awake, alert, oriented. Cranial nerves II through XII unremarkable. Cerebellum unremarkable. Motor and sensory unremarkable throughout. Exam nonfocal. Psychiatric: Mood and affect are appropriate. Normal thought process. Answering questions appropriately. Notes: Patient reports that she recently had a "full work-up" while in [place] which included a head CT, neck CT and lab work. She declines wanting reimaging her lab work done at this time and states she is here for pain management. Currently does take multiple medications including gabapentin, Flexeril, tramadol and [place]. I will give her a Xanax for the tension type headache, as she is allergic to all NSAIDS. I have talked with the patient about specific details for plan of care. Reassessment at the time of disposition demonstrates that the patient is in no acute distress. The patient is stable for discharge, counseling was provided and we discussed in great detail signs and symptoms that would prompt them to return to the Emergency Department. Medication, follow up and supportive care measures were reviewed and discussed. Voices understanding and is agreeable to plan of care. Denies any further questions or concerns at this time. Please note that when the nursing staff was preparing the patient for discharge she states that she now remembers that all of her medications need to be refilled and she does not plan to go to [place] until 1 to 2 weeks from now. I do not feel comfortable refilling her narcotics as she does have a primary c are provider that has been following her. I will give her lisinopril a 1 month refill along with a few tablets of tramadol for her chronic pain. She is aware that no further refills will be given through the emergency room. Diagnostics: None Therapeutics: Xanax Prescription: Lisinopril, Tramadol (#15) Impression: Tension Headache Encounter for medication refill Encounter for pain management Plan: 1. Today your physical exam and vital signs were within normal limits. Due to your recent work up and head CT this not much more we are able to offer you (as far as testing/imaging/specialist referrals goes). You received Xanax here to help with your tension headache, DO NOT drive while on this medication as it can cause drowsiness. 2. As you are already on multiple medications for pain, I do not feel comfortable adding to that regiment. 3. We encourage you to follow up with your Primary Care Provider and Neurologist as you have arranged in [place] and further care/management. If your symptoms should worsen, new symptoms develop or any of the signs and symptoms we discussed should arise please return to the emergency room or call 911 (if needed). Definitive disposition and diagnosis as appropriate pending reevaluation and review of above. R side of the head Pain Score (Numeric/FACES): 9 - Related Data Allergies Allergy/AdvReac Type Severity Reaction Status Date / Time aspirin Allergy Severe Difficulty Verified 05/26/20 15:31 Breathing cefaclor [From Ceclor] Allergy Severe Hives Verified 05/26/20 15:31 ibuprofen [From Motrin] Allergy Severe Difficulty Verified 05/26/20 15:31 Breathing naproxen Allergy Severe Difficulty Verified 05/26/20 15:31 Breathing NSAIDS (Non-Steroidal Allergy Severe Difficulty Verified 05/26/20 15:31 Anti-Inflamma Breathing Home Meds: Home Meds Acetaminophen [Tylenol] 325 mg PO ASDIRECTED PRN 07/31/15 [History] Omeprazole 20 mg PO DAILY 07/31/15 [History] Gabapentin [Neurontin] 300 mg PO BID #30 capsule 01/05/19 [Rx] Acetaminophen/HYDROcodone [[place] 325-5 MG] 1 tab PO Q6H PRN #10 tablet 03/16/19 [Rx] Ondansetron [Zofran ODT] 4 mg PO Q6H PRN #10 tab.dis 03/16/19 [Rx] lisinopriL [Zestril] 1 tab PO DAILY 03/16/19 [History] traMADol [Ultram] 50 mg PO TID 03/16/19 [History] lisinopriL [Lisinopril] 2.5 mg PO DAILY #30 tablet 05/26/20 [Rx] traMADol [Ultram] 50 mg PO Q4H PRN #15 tab 05/26/20 [Rx] Past Medical History HEENT History: Reports: None Cardiovascular History: Reports: Heart Failure, Hypertension Respiratory History: Reports: None Gastrointestinal History: Reports: Cholelithiasis, GERD, Hiatal Hernia, Other (See Below) Other Gastrointestinal History: ulcers Genitourinary History: Reports: Pyelonephritis, Renal Calculus, Other (See Below) Other Genitourinary History: kidney disease 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 Musculoskeletal History: Reports: Back Pain, Chronic, Fibromyalgia, Osteoarthritis, Osteoporosis Neurological History: Reports: None Psychiatric History: Reports: Depression Endocrine/Metabolic History: Reports: None Hematologic History: Reports: None Immunologic History: Reports: None Oncologic (Cancer) History: Reports: None Dermatologic History: Reports: None - Infectious Disease History Infectious Disease History: Reports: Chicken Pox - Past Surgical History HEENT Surgical History: Reports: None Cardiovascular Surgical History: Reports: None Respiratory Surgical History: Reports: None GI Surgical History: Reports: Appendectomy, Cholecystectomy, Hernia Repair/Other Female Surgical History: Reports: Hysterectomy Neurological Surgical History: Reports: Lumbar Spine Musculoskeletal Surgical History: Reports: Carpal Tunnel Other Musculoskeletal Surgeries/Procedures:: hip and knee arthroscopy Social & Family History - Family History Family Medical History: No Pertinent Family History HEENT: Reports: None - Tobacco Use Tobacco Use Status *Q: Current Every Day Tobacco User Years of Tobacco use: 40 Packs/Tins Daily: 0.5 - Caffeine Use Caffeine Use: Reports: Coffee - Recreational Drug Use Recreational Drug Use: No ED ROS GENERAL - Review of Systems Review Of Systems: Comprehensive ROS is negative, except as noted in HPI. - Physical Exam Exam: See Below (See dictation) Course - Vital Signs Last Recorded V/S: Last Vital Signs Temp 96.2 F L 05/26/20 16:17 Pulse 79 05/26/20 17:00 Resp 16 05/26/20 17:00 BP 139/79 05/26/20 17:00 Pulse Ox 95 05/26/20 17:00 - Orders/Labs/Meds Meds: Medications Discontinued Medications Generic Name Dose Route Start Last Admin Trade Name Freq PRN Reason Stop Dose Admin Alprazolam 0.5 mg 05/26/20 15:41 05/26/20 16:15 Xanax PO 05/26/20 15:42 0.5 mg NOW ONE Administration Departure - Departure Time of Disposition: 16:17 Disposition: Home, Self-Care 01 Clinical Impression: Tension-type headache, Encounter for medication refill, Encounter for pain management - Discharge Information Prescriptions: lisinopriL [Lisinopril] 2.5 mg PO DAILY #30 tablet traMADol [Ultram] 50 mg PO Q4H PRN #15 tab PRN Reason: Pain Instructions: Tension Headache, Adult, [id number] Referrals: PCP,Not In Area [Primary Care Provider] - Forms: ED Department Discharge Additional Instructions: The following information is given to patients seen in the emergency department who are being discharged to home. This information is to outline your options for follow-up care. We provide all patients seen in our emergency department with a follow-up referral. The need for follow-up, as well as the timing and circumstances, are variable depending upon the specifics of your emergency department visit. If you don't have a primary care physician on staff, we will provide you with a referral. We always advise you to contact your personal physician following an emergency department visit to inform them of the circumstance of the visit and for follow-up with them and/or the need for any referrals to a consulting specialist. The emergency department will also refer you to a specialist when appropriate. This referral assures that you have the opportunity for follow-up care with a specialist. All of these measure are taken in an effort to provide you with optimal care, which includes your follow-up. Under all circumstances we always encourage you to contact your private physician who remains a resource for coordinating your care. When calling for follow-up care, please make the office aware that this follow-up is from your recent emergency room visit. If for any reason you are refused follow-up, please contact the [facility] Emergency Department at and asked to speak to the emergency department charge nurse. [facility] [address] [place] [address] [facility] [address] [place] [address] Thank you for choosing the [facility] emergency department in [place] for your medical needs today. It was a pleasure caring for you. Today you were seen in the emergency department for tension type headache. 1. Today your physical exam and vital signs were within normal limits. Due to your recent work up and head CT in [facility], there is not much more we are able to offer you (as far as testing/imaging/specialist referrals goes). You received Xanax here to help with your tension headache, DO NOT drive while on this medication as it can cause drowsiness. 2. As you are already on multiple medications for pain, I do not feel comfortable adding to that regiment. 3. We encourage you to follow up with your Primary Care Provider and Neurologist as you have arranged in [place] and further care/management. If your symptoms should worsen, new symptoms develop or any of the signs and symptoms we discussed should arise please return to the emergency room or call 911 (if needed). Sepsis Event Note (ED) - Evaluation Sepsis Screening Result: No Definite Risk - Focused Exam Vital Signs: Vital Signs Temp Pulse Resp BP Pulse Ox 05/26/20 17:00 79 16 139/79 95 05/26/20 16:17 96.2 F L 82 18 190/95 H 95 05/26/20 15:21 97.2 F 86 18 180/88 H 96
[2020-05-26 17:01] VITALS: BP 139/79; PULSE 79
== END 2020-05-26 17:05 | disposition home or self-care (01) ==
LOC: MW.ED 14:56
DX: G44.209 Tension-type headache, unspecified, not intractable (principal); I11.0 Hypertensive heart disease with heart failure; I50.9 Heart failure, unspecified; K21.9 Gastro-esophageal reflux disease without esophagitis; F17.210 Nicotine dependence, cigarettes, uncomplicated; Z76.0 Encounter for issue of repeat prescription; Z88.8 Allergy status to other drugs, medicaments and biological substances; Z88.6 Allergy status to analgesic agent; Z88.1 Allergy status to other antibiotic agents; Z79.899 Other long term (current) drug therapy
CPT/HCPCS: 99283; A9270

== ENCOUNTER 2022-12-21 15:22 | Emergency (ER) | payer MEDICARE, BC, MEDICAID ==
[2022-12-21] MEDS ORDERED: Sodium Chloride 0.9% 10 ML Syringe FLUSH PRN (15:51)
[2022-12-21] MEDS ORDERED: Morphine 4 MG/ML Syringe IVPUSH ONE (15:51)
[2022-12-21] MEDS ORDERED: Sodium Chloride 0.9% 2.5 ML Syringe FLUSH PRN (15:51)
[2022-12-21] MEDS ORDERED: Ondansetron 4 MG/2 ML SDV IVPUSH ONE (15:51)
[2022-12-21] MEDS ORDERED: Naloxone 0.4 MG/ML SDV IVPUSH PRN (15:51)
[2022-12-21] MEDS ORDERED: Lidocaine 4% 1 each Patch TOP SCH (16:00)
[2022-12-21 16:02] LABS: BASOPHILS PERCENT AUTO 0.5 % (0.0-1.5); EOSINOPHILS PERCENT AUTO 0.6 % (0.0-7.0); HEMATOCRIT 42.1 % (36.0-46.0); HEMOGLOBIN 14.5 g/dL (12.0-16.0); LYMPHOCYTES ABSOLUTE AUTO 2.1 K/uL (0.6-2.4); LYMPHOCYTES PERCENT AUTO 31.5 % (16.0-40.0); MEAN CORPUSCULAR HEMOGLOBIN 29.8 pg (27.0-32.0); MEAN CORPUSCULAR HGB CONC 34.4 g/dL (31.0-37.0); MEAN CORPUSCULAR VOLUME 86.4 fL (80.0-98.0); MONOCYTES ABSOLUTE AUTO 0.4 K/uL (0.0-0.8); MONOCYTES PERCENT AUTO 5.6 % (0.0-15.0); NEUTROPHILS ABSOLUTE AUTO 4.1 K/uL (1.4-5.7); NEUTROPHILS PERCENT AUTO 61.8 % (48.0-80.0); NRBC ABSOLUTE 0 K/uL; PLATELET COUNT,PLT 286 K/uL (150-400); RED BLOOD CELL COUNT 4.87 M/uL (4.30-5.90); WHITE BLOOD CELL COUNT,WBC 6.58 K/uL (4.0-11.0)
[2022-12-21 16:10] LABS: INR 0.96 (0.86-1.11); PTT,PARTIAL THROMBOPLSTIN TIME 25.5 SEC (23.9-30.7)
[2022-12-21 16:16] LABS: A/G RATIO 0.9 (0.9-1.6); ALBUMIN 3.7 g/dL (3.4-5.0); BILIRUBIN TOTAL 0.2 mg/dL (0.2-1.0); CALCIUM 9.2 mg/dL (8.5-10.1); CARBON DIOXIDE,CO2 27.7 mmol/L (21.0-32.0); CREATININE 0.9 mg/dL (0.6-1.0); EST CRCL DRUG DOSING (CG) 58.12 mL/min; MAGNESIUM 1.5 mg/dL (1.8-2.4); POTASSIUM,K 3.6 mmol/L (3.5-5.1); PROTEIN TOTAL,TP 7.7 g/dL (6.4-8.2)
[2022-12-21] MEDS ORDERED: Sodium Chloride 0.9% 1,000 ML IV ONE (16:31)
[2022-12-21] MEDS ORDERED: Iopamidol 755 Mg/ML 100 ML Bottle IVPUSH ONE (16:43)
[2022-12-21 16:57] LABS: APPEARANCE,URINE CLEAR; BILIRUBIN,URINE NEGATIVE (NEGATIVE); COLOR,URINE YELLOW; GLUCOSE,URINE NEGATIVE (NEGATIVE); KETONES,URINE NEGATIVE (NEGATIVE); LEUKOCYTE ESTERASE,URINE NEGATIVE (NEGATIVE); NITRITE,URINE NEGATIVE (NEGATIVE); OCCULT BLOOD,URINE NEGATIVE (NEGATIVE); PH,URINE 5.5 (5.0-8.0); PROTEIN,URINE NEGATIVE (NEGATIVE); UROBILINOGEN,URINE 0.2 EU/dL (<2.0)
[2022-12-21 22:37] VITALS: BP 142/80; PULSE 72
== END 2022-12-21 18:55 | disposition home or self-care (01) ==
LOC: MW.ED 15:22
DX: R10.9 Unspecified abdominal pain (principal); I13.0 Hypertensive heart and chronic kidney disease with heart failure and stage 1 through stage 4 chronic kidney disease, or unspecified chronic kidney disease; N18.30 Chronic kidney disease, stage 3 unspecified; I50.9 Heart failure, unspecified; Z88.6 Allergy status to analgesic agent; Z88.8 Allergy status to other drugs, medicaments and biological substances
CPT/HCPCS: 36415; 74177; 80053; 81003; 83690; 83735; 84484; 85025; 85610; 85730; 96361; 96374; 96375; 99284; A9270; J2270; J2405; J3490; J7030; 99283

== ENCOUNTER 2023-01-02 14:47 | Emergency (ER) | payer MEDICARE, BC, MEDICAID ==
[2023-01-02] MEDS ORDERED: LORazepam 1 MG Tab PO ONE (15:56)
[2023-01-02 16:45] VITALS: BP 137/83; PULSE 66
== END 2023-01-02 16:35 | disposition home or self-care (01) ==
LOC: MW.ED 14:47
DX: F41.9 Anxiety disorder, unspecified (principal); Z76.0 Encounter for issue of repeat prescription; I13.0 Hypertensive heart and chronic kidney disease with heart failure and stage 1 through stage 4 chronic kidney disease, or unspecified chronic kidney disease; N18.30 Chronic kidney disease, stage 3 unspecified; I50.9 Heart failure, unspecified; Z88.8 Allergy status to other drugs, medicaments and biological substances
CPT/HCPCS: 99283; A9270; 99284

== ENCOUNTER 2023-01-15 11:21 | Emergency (ER) | payer BC, MEDICARE, MEDICAID ==
[2023-01-15 11:39] VITALS: BP 169/101; PULSE 86
== END 2023-01-15 11:50 | disposition home or self-care (01) ==
LOC: MW.ED 11:21
DX: F41.9 Anxiety disorder, unspecified (principal); Z76.0 Encounter for issue of repeat prescription; I13.0 Hypertensive heart and chronic kidney disease with heart failure and stage 1 through stage 4 chronic kidney disease, or unspecified chronic kidney disease; I50.9 Heart failure, unspecified; N18.30 Chronic kidney disease, stage 3 unspecified; Z79.899 Other long term (current) drug therapy; Z88.6 Allergy status to analgesic agent; Z88.1 Allergy status to other antibiotic agents; Z88.8 Allergy status to other drugs, medicaments and biological substances
CPT/HCPCS: 99283

== ENCOUNTER 2023-03-17 15:33 | Emergency (ER) | payer MEDICARE, MEDICAID ==
[2023-03-17] MEDS ORDERED: Acetaminophen/HYDROcodone 325-5 MG Tab PO ONE (19:43)
[2023-03-17] MEDS ORDERED: Ondansetron 4 MG Tab.DIS PO ONE (19:43)
[2023-03-17] MEDS ORDERED: Morphine 10 MG/ML SDV IM ONE (21:46)
[2023-03-17] MEDS ORDERED: Morphine 4 MG/ML Syringe ONE (21:50)
[2023-03-17] MEDS ORDERED: Morphine 4 MG/ML Syringe IM ONE (21:51)
[2023-03-17 23:20] VITALS: BP 132/85; PULSE 68
== END 2023-03-17 23:19 | disposition home or self-care (01) ==
LOC: MW.ED 15:33
DX: S20.211A Contusion of right front wall of thorax, initial encounter (principal); S40.011A Contusion of right shoulder, initial encounter; S20.01XA Contusion of right breast, initial encounter; M25.552 Pain in left hip; I13.0 Hypertensive heart and chronic kidney disease with heart failure and stage 1 through stage 4 chronic kidney disease, or unspecified chronic kidney disease; I50.9 Heart failure, unspecified; N18.30 Chronic kidney disease, stage 3 unspecified; F17.210 Nicotine dependence, cigarettes, uncomplicated; Z88.6 Allergy status to analgesic agent; W19.XXXA Unspecified fall, initial encounter
CPT/HCPCS: 71046; 72192; 73030; 73502; 96372; 99284; A9270; J2270

== ENCOUNTER 2023-03-22 14:57 | Emergency (ER) | payer MEDICARE, MEDICAID ==
[2023-03-22] MEDS ORDERED: Morphine 4 MG/ML Syringe IM STA ×2 (17:05→20:48)
[2023-03-22] MEDS ORDERED: Acetaminophen 500 MG Tab PO STA (17:06)
[2023-03-23 00:03] VITALS: BP 136/69; PULSE 81
== END 2023-03-22 21:00 | disposition home or self-care (01) ==
LOC: MW.ED 14:57
DX: M79.631 Pain in right forearm (principal); M25.521 Pain in right elbow; I13.0 Hypertensive heart and chronic kidney disease with heart failure and stage 1 through stage 4 chronic kidney disease, or unspecified chronic kidney disease; I50.9 Heart failure, unspecified; N18.30 Chronic kidney disease, stage 3 unspecified; K21.9 Gastro-esophageal reflux disease without esophagitis; Z79.899 Other long term (current) drug therapy; Z88.6 Allergy status to analgesic agent; Z88.1 Allergy status to other antibiotic agents
CPT/HCPCS: 73080; 73090; 96372; 99283; A9270; J2270

== ENCOUNTER 2023-05-22 13:59 | Emergency (ER) | payer MEDICARE ==
[2023-05-22] MEDS ORDERED: Gabapentin 800 MG Tab PO STA (14:13)
[2023-05-22] MEDS ORDERED: Morphine 4 MG/ML Syringe IVPUSH ONE ×3 (14:15→22:37)
[2023-05-22] MEDS ORDERED: Ondansetron 4 MG/2 ML SDV IVPUSH ONE ×2 (14:15→19:43)
[2023-05-22 14:22] LABS: BASOPHILS ABSOLUTE AUTO 0.03 K/uL (0.00-0.20); BASOPHILS PERCENT AUTO 0.3 % (0.0-1.0); EOSINOPHILS ABSOLUTE AUTO 0.09 K/uL (0.00-0.45); EOSINOPHILS PERCENT AUTO 0.9 % (0.0-6.0); HEMATOCRIT 44.5 % (37.0-47.0); HEMOGLOBIN 15.6 g/dL (12.0-16.0); IMMATURE GRAN ABSOLUTE AUTO 0.03 K/uL (0.00-0.05); IMMATURE GRAN PERCENT AUTO 0.3 % (0.0-0.4); LYMPHOCYTES ABSOLUTE AUTO 2.11 K/uL (1.00-4.80); LYMPHOCYTES PERCENT AUTO 20.5 % (24.0-44.0); MEAN CORPUSCULAR HEMOGLOBIN 29.5 pg (28.0-32.0); MEAN CORPUSCULAR HGB CONC 35.1 g/dL (32.0-36.0); MEAN CORPUSCULAR VOLUME 84.3 fL (83.0-99.0); MONOCYTES ABSOLUTE AUTO 0.57 K/uL (0.00-0.80); MONOCYTES PERCENT AUTO 5.5 % (0.0-8.0); NEUTROPHILS ABSOLUTE AUTO 7.46 K/uL (1.80-7.70); NEUTROPHILS PERCENT AUTO 72.5 % (41.0-71.0); PLATELET COUNT,PLT 404 K/uL (150-400); RED BLOOD CELL COUNT 5.28 M/uL (4.10-5.30); WHITE BLOOD CELL COUNT,WBC 10.29 K/uL (3.9-11.3)
[2023-05-22 14:29] LABS: BASE EXCESS VENOUS 0.9 (-2.0-3.0); PH,VENOUS 7.46 (7.31-7.41)
[2023-05-22 15:05] LABS: A/G RATIO 0.8 (0.9-1.6); ALBUMIN 3.5 g/dL (3.4-5.0); BILIRUBIN TOTAL 0.4 mg/dL (0.2-1.0); C-REACTIVE PROTEIN 1.76 mg/dL (<0.3); CALCIUM 9.5 mg/dL (8.5-10.1); CARBON DIOXIDE,CO2 24.7 mmol/L (21.0-32.0); CREATININE 1.2 mg/dL (0.6-1.0); EST CRCL DRUG DOSING (CG) 43.59 mL/min; MAGNESIUM 1.7 mg/dL (1.8-2.4); POTASSIUM,K 3.6 mmol/L (3.5-5.1); PROTEIN TOTAL,TP 7.9 g/dL (6.4-8.2)
[2023-05-22 15:09] LABS: CORONAVIRUS COVID-19 NAA NEGATIVE (NEGATIVE); INFLUENZA A NAA NEGATIVE (NEGATIVE); INFLUENZA B NAA NEGATIVE (NEGATIVE); RESPIRATORY SYNCYTIAL VIR NAA NEGATIVE (NEGATIVE)
[2023-05-22] MEDS ORDERED: Enoxaparin 100 MG/1 ML Syringe SUBCUT STA (15:24)
[2023-05-22] MEDS ORDERED: Iopamidol 755 MG/ML 500 ML Multipack Bottle IVPUSH STA (15:48)
[2023-05-22] MEDS ORDERED: Ondansetron 4 MG/2 ML SDV ONE (19:41)
[2023-05-22 21:02] LABS: APPEARANCE,URINE CLEAR; COLOR,URINE YELLOW; GLUCOSE,URINE NEGATIVE (NEGATIVE); KETONES,URINE NEGATIVE (NEGATIVE); LEUKOCYTE ESTERASE,URINE NEGATIVE (NEGATIVE); NITRITE,URINE POSITIVE (NEGATIVE); OCCULT BLOOD,URINE NEGATIVE (NEGATIVE); PROTEIN,URINE NEGATIVE (NEGATIVE); UROBILINOGEN,URINE 0.2 EU/dL (<2.0)
[2023-05-22 21:04] LABS: BILIRUBIN,URINE SMALL (NEGATIVE)
[2023-05-22 21:05] LABS: BACTERIA,URINE FEW (NEGATIVE); EPITHELIAL CELLS,URINE FEW (NONE-FEW); MUCUS,URINE LIGHT (NONE-MOD); RBC,URINE 0-2 (0-2/HPF); WBC,URINE 0-2 (0-5/HPF)
[2023-05-22 23:59] VITALS: BP 136/91; PULSE 93
[2023-05-22] MEDS ORDERED: Prochlorperazine 10 MG/2 ML SDV IVPUSH ONE (23:59)
== END 2023-05-22 23:59 ==
LOC: MW.ED 13:59
DX: I21.4 Non-ST elevation (NSTEMI) myocardial infarction (principal); I11.0 Hypertensive heart disease with heart failure; I50.9 Heart failure, unspecified; Z90.49 Acquired absence of other specified parts of digestive tract; Z90.710 Acquired absence of both cervix and uterus; Z79.899 Other long term (current) drug therapy; Z88.8 Allergy status to other drugs, medicaments and biological substances; Z88.5 Allergy status to narcotic agent; Z20.822 Contact with and (suspected) exposure to COVID-19
CPT/HCPCS: 0241U; 36415; 71045; 71275; 80053; 81001; 82803; 83605; 83735; 84484; 85025; 86140; 93005; 96374; 96375; 96376; 99285; A9270; J0780; J1650; J2270; J2405; Q9967; 93010

== ENCOUNTER 2023-06-02 14:48 | Emergency (ER) | payer MEDICARE, MEDICAID ==
[2023-06-02] MEDS ORDERED: Acetaminophen/oxyCODONE 325-5 MG Tab PO ONE (17:04)
[2023-06-02 18:17] LABS: BASOPHILS ABSOLUTE AUTO 0.04 K/uL (0.00-0.20); BASOPHILS PERCENT AUTO 0.4 % (0.0-1.0); EOSINOPHILS ABSOLUTE AUTO 0.12 K/uL (0.00-0.45); EOSINOPHILS PERCENT AUTO 1.2 % (0.0-6.0); HEMATOCRIT 34.8 % (37.0-47.0); HEMOGLOBIN 12.1 g/dL (12.0-16.0); IMMATURE GRAN ABSOLUTE AUTO 0.02 K/uL (0.00-0.05); IMMATURE GRAN PERCENT AUTO 0.2 % (0.0-0.4); LYMPHOCYTES ABSOLUTE AUTO 2.31 K/uL (1.00-4.80); LYMPHOCYTES PERCENT AUTO 23.9 % (24.0-44.0); MEAN CORPUSCULAR HGB CONC 34.8 g/dL (32.0-36.0); MEAN CORPUSCULAR VOLUME 86.1 fL (83.0-99.0); MEAN PLATELET VOLUME 9.2 fL (9.4-12.3); MONOCYTES ABSOLUTE AUTO 0.56 K/uL (0.00-0.80); MONOCYTES PERCENT AUTO 5.8 % (0.0-8.0); NEUTROPHILS ABSOLUTE AUTO 6.61 K/uL (1.80-7.70); NEUTROPHILS PERCENT AUTO 68.5 % (41.0-71.0); PLATELET COUNT,PLT 318 K/uL (150-400); RED BLOOD CELL COUNT 4.04 M/uL (4.10-5.30); WHITE BLOOD CELL COUNT,WBC 9.66 K/uL (3.9-11.3)
[2023-06-02 19:12] LABS: A/G RATIO 0.7 (0.9-1.6); ALBUMIN 3.1 g/dL (3.4-5.0); BILIRUBIN TOTAL 0.2 mg/dL (0.2-1.0); CALCIUM 8.9 mg/dL (8.5-10.1); CARBON DIOXIDE,CO2 28.6 mmol/L (21.0-32.0); CREATININE 0.8 mg/dL (0.6-1.0); EST CRCL DRUG DOSING (CG) 65.38 mL/min; PROTEIN TOTAL,TP 7.4 g/dL (6.4-8.2)
[2023-06-02 19:33] VITALS: BP 100/73; PULSE 84
== END 2023-06-02 19:33 | disposition home or self-care (01) ==
LOC: MW.ED 14:48
DX: S86.912A Strain of unspecified muscle(s) and tendon(s) at lower leg level, left leg, initial encounter (principal); I13.0 Hypertensive heart and chronic kidney disease with heart failure and stage 1 through stage 4 chronic kidney disease, or unspecified chronic kidney disease; I50.9 Heart failure, unspecified; N18.30 Chronic kidney disease, stage 3 unspecified; Z88.6 Allergy status to analgesic agent; Z88.1 Allergy status to other antibiotic agents; Z88.8 Allergy status to other drugs, medicaments and biological substances; Z79.899 Other long term (current) drug therapy; Z79.01 Long term (current) use of anticoagulants; Z90.49 Acquired absence of other specified parts of digestive tract; Z90.710 Acquired absence of both cervix and uterus; X58.XXXA Exposure to other specified factors, initial encounter
CPT/HCPCS: 36415; 80053; 84484; 85025; 93005; 93971; 99284; A9270

== ENCOUNTER 2023-12-17 15:20 | Emergency (ER) | payer BC, MEDICARE ==
[2023-12-17 16:53] LABS: BASOPHILS ABSOLUTE AUTO 0.02 K/uL (0.00-0.20); BASOPHILS PERCENT AUTO 0.3 % (0.0-1.0); EOSINOPHILS ABSOLUTE AUTO 0.05 K/uL (0.00-0.45); EOSINOPHILS PERCENT AUTO 0.6 % (0.0-6.0); HEMATOCRIT 34.3 % (37.0-47.0); HEMOGLOBIN 11.4 g/dL (12.0-16.0); IMMATURE GRAN ABSOLUTE AUTO 0.03 K/uL (0.00-0.05); IMMATURE GRAN PERCENT AUTO 0.4 % (0.0-0.4); LYMPHOCYTES ABSOLUTE AUTO 1.62 K/uL (1.00-4.80); LYMPHOCYTES PERCENT AUTO 20.6 % (24.0-44.0); MEAN CORPUSCULAR HEMOGLOBIN 28.5 pg (28.0-32.0); MEAN CORPUSCULAR HGB CONC 33.2 g/dL (32.0-36.0); MEAN CORPUSCULAR VOLUME 85.8 fL (83.0-99.0); MEAN PLATELET VOLUME 9.4 fL (9.4-12.3); MONOCYTES PERCENT AUTO 5.1 % (0.0-8.0); NEUTROPHILS ABSOLUTE AUTO 5.76 K/uL (1.80-7.70); PLATELET COUNT,PLT 260 K/uL (150-400); WHITE BLOOD CELL COUNT,WBC 7.88 K/uL (3.9-11.3)
[2023-12-17] MEDS ORDERED: Naloxone 0.4 MG/ML SDV IVPUSH PRN (17:17)
[2023-12-17] MEDS: Ondansetron 4 MG/2 ML SDV IVPUSH ONE (17:38)
[2023-12-17] MEDS: Morphine 4 MG/ML Syringe IVPUSH ONE (17:38)
[2023-12-17 17:40] LABS: A/G RATIO 0.7 (0.9-1.6); ALBUMIN 2.8 g/dL (3.4-5.0); BILIRUBIN TOTAL 0.4 mg/dL (0.2-1.0); CALCIUM 8.3 mg/dL (8.5-10.1); CARBON DIOXIDE,CO2 32.2 mmol/L (21.0-32.0); CREATININE 1.1 mg/dL (0.6-1.0); EST CRCL DRUG DOSING (CG) 46.96 mL/min; POTASSIUM,K 3.8 mmol/L (3.5-5.1); PROTEIN TOTAL,TP 6.6 g/dL (6.4-8.2)
[2023-12-17 17:44] LABS: LACTIC ACID 1.8 mmol/L (0.4-2.0)
[2023-12-17] MEDS: Heparin Sodium/0.45% NaCl 500 ML IV SCH (19:26)
[2023-12-17] MEDS: fentaNYL 50 MCG/ML SDV IVPUSH ONE (21:11)
[2023-12-19 01:59] VITALS: BP 108/68; PULSE 90
== END 2023-12-17 21:15 | disposition left against medical advice (07) ==
LOC: MW.ED 15:20
DX: M79.605 Pain in left leg (principal); Z79.899 Other long term (current) drug therapy; I11.0 Hypertensive heart disease with heart failure; I50.9 Heart failure, unspecified; E78.00 Pure hypercholesterolemia, unspecified; K21.9 Gastro-esophageal reflux disease without esophagitis; Z88.6 Allergy status to analgesic agent; Z88.5 Allergy status to narcotic agent; Z88.1 Allergy status to other antibiotic agents; Z79.01 Long term (current) use of anticoagulants; Z95.5 Presence of coronary angioplasty implant and graft; Z90.49 Acquired absence of other specified parts of digestive tract; Z90.710 Acquired absence of both cervix and uterus
CPT/HCPCS: 36415; 80053; 83605; 84484; 85025; 85730; 93005; 93926; 93971; 96365; 96366; 96375; 99284; J1644; J2270; J2405; J3010

== ENCOUNTER 2023-12-25 18:48 | Emergency (ER) | payer MEDICARE ==
[2023-12-25] MEDS: Acetaminophen/HYDROcodone 325-5 MG Tab PO ONE (19:24)
[2023-12-25 19:44] VITALS: BP 154/91; PULSE 93
== END 2023-12-25 19:46 | disposition home or self-care (01) ==
LOC: MW.ED 18:48
DX: I73.9 Peripheral vascular disease, unspecified (principal); S73.006A Unspecified dislocation of unspecified hip, initial encounter; I11.0 Hypertensive heart disease with heart failure; I50.9 Heart failure, unspecified; Z90.49 Acquired absence of other specified parts of digestive tract; Z90.710 Acquired absence of both cervix and uterus; Z79.899 Other long term (current) drug therapy; Z88.8 Allergy status to other drugs, medicaments and biological substances; X58.XXXA Exposure to other specified factors, initial encounter
CPT/HCPCS: 99283; A9270; 99284

== ENCOUNTER 2024-01-05 12:54 | Emergency (ER) | payer MEDICARE, MEDICAID ==
[2024-01-05] MEDS: oxyCODONE 5 MG Tab PO ONE (13:26)
[2024-01-05 14:48] VITALS: BP 121/74; PULSE 91
== END 2024-01-05 14:47 | disposition home or self-care (01) ==
LOC: MW.ED 12:54
DX: M79.604 Pain in right leg (principal); I11.0 Hypertensive heart disease with heart failure; I50.9 Heart failure, unspecified; K21.9 Gastro-esophageal reflux disease without esophagitis; F17.210 Nicotine dependence, cigarettes, uncomplicated; Z90.49 Acquired absence of other specified parts of digestive tract; Z90.710 Acquired absence of both cervix and uterus; Z79.899 Other long term (current) drug therapy; Z88.8 Allergy status to other drugs, medicaments and biological substances; Z75.8 Other problems related to medical facilities and other health care
CPT/HCPCS: 93971; 99283; A9270

== ENCOUNTER 2024-01-15 17:53 | Observation (INO) | payer BC, MEDICAID ==
[2024-01-15] MEDS ORDERED: Sodium Chloride 0.9% 2.5 ML Syringe FLUSH PRN (18:04)
[2024-01-15] MEDS ORDERED: Sodium Chloride 0.9% 20 ML SDV IV PRN (18:04)
[2024-01-15] MEDS ORDERED: Sodium Chloride 0.9% 10 ML Syringe FLUSH PRN (18:04)
[2024-01-15] MEDS: Aspirin 81 MG Tab.Chew PO ONE (18:35)
[2024-01-15] MEDS: methylPREDNISolone Sodium Succinate 125 MG/2 ML SDV IVPUSH ONE (18:36)
[2024-01-15] MEDS: Albuterol/Ipratropium 3.0-0.5 MG/3 ML Neb Soln NEB ONE (18:36)
[2024-01-15 18:42] LABS: BASOPHILS ABSOLUTE AUTO 0.03 K/uL (0.00-0.20); BASOPHILS PERCENT AUTO 0.3 % (0.0-1.0); EOSINOPHILS ABSOLUTE AUTO 0.09 K/uL (0.00-0.45); HEMATOCRIT 34.3 % (37.0-47.0); HEMOGLOBIN 11.3 g/dL (12.0-16.0); IMMATURE GRAN ABSOLUTE AUTO 0.03 K/uL (0.00-0.05); IMMATURE GRAN PERCENT AUTO 0.3 % (0.0-0.4); LYMPHOCYTES ABSOLUTE AUTO 1.98 K/uL (1.00-4.80); MEAN CORPUSCULAR HEMOGLOBIN 27.8 pg (28.0-32.0); MEAN CORPUSCULAR HGB CONC 32.9 g/dL (32.0-36.0); MEAN CORPUSCULAR VOLUME 84.3 fL (83.0-99.0); MEAN PLATELET VOLUME 9.6 fL (9.4-12.3); MONOCYTES ABSOLUTE AUTO 0.55 K/uL (0.00-0.80); MONOCYTES PERCENT AUTO 5.8 % (0.0-8.0); NEUTROPHILS ABSOLUTE AUTO 6.73 K/uL (1.80-7.70); NEUTROPHILS PERCENT AUTO 71.6 % (41.0-71.0); PLATELET COUNT,PLT 260 K/uL (150-400); RED BLOOD CELL COUNT 4.07 M/uL (4.10-5.30); WHITE BLOOD CELL COUNT,WBC 9.41 K/uL (3.9-11.3)
[2024-01-15 18:49] LABS: INR 1.1 (0.86-1.11)
[2024-01-15 19:09] LABS: BASE EXCESS VENOUS 9.4 (-2.0-3.0); BICARBONATE,VENOUS 36 mEQ/mL (22-28); PCO2 VENOUS 60 mmHG (41-51); PH,VENOUS 7.39 (7.31-7.41); PO2 VENOUS < 30 mmHG (35-45)
[2024-01-15 19:17] LABS: A/G RATIO 0.8 (0.9-1.6); ALBUMIN 2.9 g/dL (3.4-5.0); BILIRUBIN TOTAL 0.5 mg/dL (0.2-1.0); CALCIUM 8.2 mg/dL (8.5-10.1); CARBON DIOXIDE,CO2 35.3 mmol/L (21.0-32.0); EST CRCL DRUG DOSING (CG) 51.66 mL/min; MAGNESIUM 1.2 mg/dL (1.8-2.4); POTASSIUM,K 4.2 mmol/L (3.5-5.1); PROTEIN TOTAL,TP 6.7 g/dL (6.4-8.2)
[2024-01-15] MEDS: Ondansetron 4 MG/2 ML SDV IVPUSH ONE (19:46)
[2024-01-15] MEDS ORDERED: Polyethylene Glycol 3350 Powder 17 GM Packet PO PRN (20:08)
[2024-01-15] MEDS ORDERED: Acetaminophen 650 MG Supp RECTAL PRN (20:08)
[2024-01-15] MEDS ORDERED: Ondansetron 4 MG/2 ML SDV IVPUSH PRN (20:08)
[2024-01-15] MEDS ORDERED: Melatonin 3 MG Tab PO PRN (20:08)
[2024-01-15] MEDS ORDERED: Non-Formulary Medication 1 Each (Gabapentin 600 MG Tablet) PO SCH ×2 (20:15→20:30)
[2024-01-15 20:17] LABS: CORONAVIRUS COVID-19 NAA NEGATIVE (NEGATIVE); INFLUENZA A NAA NEGATIVE (NEGATIVE); INFLUENZA B NAA NEGATIVE (NEGATIVE); RESPIRATORY SYNCYTIAL VIR NAA NEGATIVE (NEGATIVE)
[2024-01-15] MEDS: Apixaban 5 MG Tab PO SCH (22:16)
[2024-01-15] MEDS: Mirtazapine 15 MG Tab PO SCH (22:16)
[2024-01-15] MEDS: Acetaminophen 325 MG Tab PO PRN (22:16)
[2024-01-15] MEDS: Pantoprazole 40 MG in Sodium Chloride 0.9% 10 ML IVPUSH SCH (22:19)
[2024-01-15] MEDS: Azithromycin 500 MG in Sodium Chloride 0.9% 250 ML IV ONE (22:19)
[2024-01-15] MEDS: Gabapentin 300 MG Cap PO SCH (22:23)
[2024-01-16] MEDS: Albuterol/Ipratropium 3.0-0.5 MG/3 ML Neb Soln NEB SCH (01:45)
[2024-01-16 06:59] LABS: BASOPHILS ABSOLUTE AUTO 0.01 K/uL (0.00-0.20); BASOPHILS PERCENT AUTO 0.1 % (0.0-1.0); EOSINOPHILS ABSOLUTE AUTO 0.08 K/uL (0.00-0.45); EOSINOPHILS PERCENT AUTO 1.2 % (0.0-6.0); HEMATOCRIT 33.3 % (37.0-47.0); IMMATURE GRAN ABSOLUTE AUTO 0.01 K/uL (0.00-0.05); IMMATURE GRAN PERCENT AUTO 0.1 % (0.0-0.4); LYMPHOCYTES ABSOLUTE AUTO 1.97 K/uL (1.00-4.80); MEAN CORPUSCULAR HEMOGLOBIN 27.8 pg (28.0-32.0); MEAN CORPUSCULAR VOLUME 84.3 fL (83.0-99.0); MEAN PLATELET VOLUME 9.7 fL (9.4-12.3); MONOCYTES ABSOLUTE AUTO 0.41 K/uL (0.00-0.80); NEUTROPHILS ABSOLUTE AUTO 4.32 K/uL (1.80-7.70); NEUTROPHILS PERCENT AUTO 63.6 % (41.0-71.0); PLATELET COUNT,PLT 239 K/uL (150-400); RED BLOOD CELL COUNT 3.95 M/uL (4.10-5.30)
[2024-01-16 07:24] LABS: CALCIUM 8.2 mg/dL (8.5-10.1); CARBON DIOXIDE,CO2 36.8 mmol/L (21.0-32.0); CREATININE 0.8 mg/dL (0.6-1.0); EST CRCL DRUG DOSING (CG) 64.58 mL/min; MAGNESIUM 1.6 mg/dL (1.8-2.4); POTASSIUM,K 3.9 mmol/L (3.5-5.1)
[2024-01-16] MEDS: atorvaSTATin 40 MG Tab PO SCH (10:16)
[2024-01-16] MEDS: Levofloxacin/Dextrose 5%-Water 750 MG in Premix Bag 1 BAG IV SCH (10:18)
[2024-01-16] MEDS: traMADol 50 MG Tab PO ONE (11:20)
[2024-01-16] MEDS: Magnesium Sulfate/Water 2 GM in Premix Bag 1 BAG IV ONE (20:50)
[2024-01-16] MEDS ORDERED: Glucagon,Human Recombinant 1 MG Vial IM PRN (21:25)
[2024-01-16] MEDS ORDERED: 50% Dextrose in Water 50 ML Syringe IVPUSH PRN (21:25)
[2024-01-16] MEDS ORDERED: Gabapentin 300 MG Cap PO SCH (22:05)
[2024-01-16] MEDS: Insulin Aspart 100 Units/ML 3 ML Pen SUBCUT SCH (22:21)
[2024-01-17 06:34] LABS: BASOPHILS ABSOLUTE AUTO 0.02 K/uL (0.00-0.20); BASOPHILS PERCENT AUTO 0.3 % (0.0-1.0); EOSINOPHILS ABSOLUTE AUTO 0.05 K/uL (0.00-0.45); EOSINOPHILS PERCENT AUTO 0.6 % (0.0-6.0); HEMATOCRIT 35.3 % (37.0-47.0); HEMOGLOBIN 11.4 g/dL (12.0-16.0); IMMATURE GRAN ABSOLUTE AUTO 0.02 K/uL (0.00-0.05); IMMATURE GRAN PERCENT AUTO 0.3 % (0.0-0.4); LYMPHOCYTES ABSOLUTE AUTO 1.28 K/uL (1.00-4.80); LYMPHOCYTES PERCENT AUTO 16.3 % (24.0-44.0); MEAN CORPUSCULAR HEMOGLOBIN 27.9 pg (28.0-32.0); MEAN CORPUSCULAR HGB CONC 32.3 g/dL (32.0-36.0); MEAN CORPUSCULAR VOLUME 86.3 fL (83.0-99.0); MEAN PLATELET VOLUME 9.7 fL (9.4-12.3); MONOCYTES ABSOLUTE AUTO 0.42 K/uL (0.00-0.80); MONOCYTES PERCENT AUTO 5.4 % (0.0-8.0); NEUTROPHILS ABSOLUTE AUTO 6.04 K/uL (1.80-7.70); NEUTROPHILS PERCENT AUTO 77.1 % (41.0-71.0); PLATELET COUNT,PLT 282 K/uL (150-400); RED BLOOD CELL COUNT 4.09 M/uL (4.10-5.30); WHITE BLOOD CELL COUNT,WBC 7.83 K/uL (3.9-11.3)
[2024-01-17 07:06] LABS: A/G RATIO 0.7 (0.9-1.6); ALBUMIN 2.7 g/dL (3.4-5.0); BILIRUBIN TOTAL 0.3 mg/dL (0.2-1.0); CALCIUM 9.2 mg/dL (8.5-10.1); CARBON DIOXIDE,CO2 35.6 mmol/L (21.0-32.0); CREATININE 0.9 mg/dL (0.6-1.0); EST CRCL DRUG DOSING (CG) 57.4 mL/min; POTASSIUM,K 4.7 mmol/L (3.5-5.1); PROTEIN TOTAL,TP 6.8 g/dL (6.4-8.2)
[2024-01-17] MEDS: Iopamidol 755 MG/ML 500 ML Multipack Bottle IVPUSH STA (08:45)
[2024-01-17 11:37] VITALS: PULSE 83
[2024-01-17 12:26] VITALS: BP 164/76
== END 2024-01-17 12:00 | disposition home or self-care (01) ==
LOC: MW.ED 17:53 → MW.MS 20:06
PROVIDERS: ADMIT Family Medicine; ATTEND Family Medicine
DX: J44.1 Chronic obstructive pulmonary disease with (acute) exacerbation (principal); J96.01 Acute respiratory failure with hypoxia; R79.89 Other specified abnormal findings of blood chemistry; K21.9 Gastro-esophageal reflux disease without esophagitis; F17.210 Nicotine dependence, cigarettes, uncomplicated; Z88.8 Allergy status to other drugs, medicaments and biological substances; Z20.822 Contact with and (suspected) exposure to COVID-19; Z79.899 Other long term (current) drug therapy; Z79.01 Long term (current) use of anticoagulants
CPT/HCPCS: 0241U; 36415; 71045; 71275; 80048; 80053; 82803; 82947; 83735; 83880; 84484; 85025; 85610; 94640; 94667; 96365; 96366; 96367; 96375; 96376; 99285; A9270; G0378; J0456; J1815; J1956; J2405; J2470; J3475; J3490; J7050; Q9967; 93010; 96374; J7620-GY

== ENCOUNTER 2024-03-10 18:24 | Emergency (ER) | payer MEDICAID, MEDICARE ==
[2024-03-10] MEDS: Ondansetron 4 MG Tab.DIS PO STA (19:03)
[2024-03-10] MEDS: Sodium Chloride 0.9% 10 ML Syringe FLUSH PRN (19:14)
[2024-03-10] MEDS: Sodium Chloride 0.9% 2.5 ML Syringe FLUSH PRN (19:14)
[2024-03-10 19:18] LABS: BASE EXCESS VENOUS 4.8 (-2.0-3.0); PH,VENOUS 7.35 (7.31-7.41)
[2024-03-10 19:22] LABS: BASOPHILS ABSOLUTE AUTO 0.03 K/uL (0.00-0.20); BASOPHILS PERCENT AUTO 0.3 % (0.0-1.0); EOSINOPHILS ABSOLUTE AUTO 0.04 K/uL (0.00-0.45); EOSINOPHILS PERCENT AUTO 0.4 % (0.0-6.0); HEMATOCRIT 38.1 % (37.0-47.0); HEMOGLOBIN 12.7 g/dL (12.0-16.0); IMMATURE GRAN ABSOLUTE AUTO 0.04 K/uL (0.00-0.05); IMMATURE GRAN PERCENT AUTO 0.4 % (0.0-0.4); LYMPHOCYTES ABSOLUTE AUTO 1.28 K/uL (1.00-4.80); LYMPHOCYTES PERCENT AUTO 11.5 % (24.0-44.0); MEAN CORPUSCULAR HEMOGLOBIN 27.9 pg (28.0-32.0); MEAN CORPUSCULAR HGB CONC 33.3 g/dL (32.0-36.0); MEAN CORPUSCULAR VOLUME 83.7 fL (83.0-99.0); MEAN PLATELET VOLUME 9.1 fL (9.4-12.3); MONOCYTES ABSOLUTE AUTO 0.45 K/uL (0.00-0.80); MONOCYTES PERCENT AUTO 4.1 % (0.0-8.0); NEUTROPHILS ABSOLUTE AUTO 9.26 K/uL (1.80-7.70); NEUTROPHILS PERCENT AUTO 83.3 % (41.0-71.0); PLATELET COUNT,PLT 255 K/uL (150-400); RED BLOOD CELL COUNT 4.55 M/uL (4.10-5.30)
[2024-03-10 19:34] LABS: INR 1.1 (0.86-1.11)
[2024-03-10 19:42] LABS: CARBON DIOXIDE,CO2 29.3 mmol/L (21.0-32.0); POTASSIUM,K 4.1 mmol/L (3.5-5.1)
[2024-03-10 19:43] LABS: A/G RATIO 0.9 (0.9-1.6); ALBUMIN 3.3 g/dL (3.4-5.0); BILIRUBIN TOTAL 0.7 mg/dL (0.2-1.0); CALCIUM 8.7 mg/dL (8.5-10.1); EST CRCL DRUG DOSING (CG) 51.66 mL/min; PROTEIN TOTAL,TP 6.8 g/dL (6.4-8.2)
[2024-03-10 19:48] LABS: CORONAVIRUS COVID-19 NAA NEGATIVE (NEGATIVE); INFLUENZA A NAA NEGATIVE (NEGATIVE); INFLUENZA B NAA NEGATIVE (NEGATIVE); RESPIRATORY SYNCYTIAL VIR NAA NEGATIVE (NEGATIVE)
[2024-03-10 19:49] LABS: MAGNESIUM 1.4 mg/dL (1.8-2.4)
[2024-03-10] MEDS: Magnesium Oxide 400 MG Tab PO STA (20:21)
[2024-03-11 00:31] VITALS: BP 103/76; PULSE 87
== END 2024-03-10 21:40 | disposition left against medical advice (07) ==
LOC: MW.ED 18:24
DX: J44.1 Chronic obstructive pulmonary disease with (acute) exacerbation (principal); I11.0 Hypertensive heart disease with heart failure; I50.9 Heart failure, unspecified; J44.9 Chronic obstructive pulmonary disease, unspecified; K21.9 Gastro-esophageal reflux disease without esophagitis; E11.9 Type 2 diabetes mellitus without complications; Z90.49 Acquired absence of other specified parts of digestive tract; Z90.710 Acquired absence of both cervix and uterus; Z79.01 Long term (current) use of anticoagulants; Z79.899 Other long term (current) drug therapy; Z88.6 Allergy status to analgesic agent; Z88.4 Allergy status to anesthetic agent; Z88.8 Allergy status to other drugs, medicaments and biological substances; Z75.8 Other problems related to medical facilities and other health care
CPT/HCPCS: 0241U; 36415; 71045; 80053; 82803; 83690; 83735; 83880; 84484; 85025; 85610; 93005; 99285; A9270; J3490

== ENCOUNTER 2024-06-16 11:52 | Inpatient (IN) | payer MEDICARE, MEDICAID ==
[2024-06-16] MEDS: oxyCODONE 5 MG Tab PO STA (12:30)
[2024-06-16 12:42] LABS: BASOPHILS ABSOLUTE AUTO 0.03 K/uL (0.00-0.20); BASOPHILS PERCENT AUTO 0.3 % (0.0-1.0); EOSINOPHILS ABSOLUTE AUTO 0.07 K/uL (0.00-0.45); EOSINOPHILS PERCENT AUTO 0.6 % (0.0-6.0); HEMOGLOBIN 12.8 g/dL (12.0-16.0); IMMATURE GRAN ABSOLUTE AUTO 0.03 K/uL (0.00-0.05); IMMATURE GRAN PERCENT AUTO 0.3 % (0.0-0.4); LYMPHOCYTES ABSOLUTE AUTO 1.64 K/uL (1.00-4.80); LYMPHOCYTES PERCENT AUTO 14.7 % (24.0-44.0); MEAN CORPUSCULAR HEMOGLOBIN 28.3 pg (28.0-32.0); MEAN CORPUSCULAR HGB CONC 32.8 g/dL (32.0-36.0); MEAN CORPUSCULAR VOLUME 86.3 fL (83.0-99.0); MEAN PLATELET VOLUME 9.5 fL (9.4-12.3); MONOCYTES ABSOLUTE AUTO 0.67 K/uL (0.00-0.80); NEUTROPHILS ABSOLUTE AUTO 8.73 K/uL (1.80-7.70); NEUTROPHILS PERCENT AUTO 78.1 % (41.0-71.0); PLATELET COUNT,PLT 239 K/uL (150-400); RED BLOOD CELL COUNT 4.52 M/uL (4.10-5.30); WHITE BLOOD CELL COUNT,WBC 11.17 K/uL (3.9-11.3)
[2024-06-16 12:48] LABS: PH,VENOUS 7.38 (7.31-7.41)
[2024-06-16 13:01] LABS: INR 1.03 (0.86-1.11)
[2024-06-16 13:17] LABS: A/G RATIO 0.8 (0.9-1.6); BILIRUBIN TOTAL 0.6 mg/dL (0.2-1.0); CALCIUM 8.9 mg/dL (8.5-10.1); CREATININE 0.9 mg/dL (0.6-1.0); EST CRCL DRUG DOSING (CG) 57.4 mL/min; POTASSIUM,K 3.7 mmol/L (3.5-5.1); PROTEIN TOTAL,TP 6.9 g/dL (6.4-8.2)
[2024-06-16] MEDS: Morphine 4 MG/ML Syringe IVPUSH STA (14:08)
[2024-06-16] MEDS: Ondansetron 4 MG/2 ML SDV IVPUSH STA (14:08)
[2024-06-16] MEDS ORDERED: Naloxone 0.4 MG/ML SDV IVPUSH PRN (16:52)
[2024-06-16] MEDS ORDERED: Sodium Chloride 0.9% 10 ML Syringe FLUSH PRN (17:02)
[2024-06-16] MEDS ORDERED: Sodium Chloride 0.9% 2.5 ML Syringe FLUSH PRN (17:02)
[2024-06-16] MEDS ORDERED: Ondansetron 4 MG/2 ML SDV IVPUSH PRN (17:02)
[2024-06-16] MEDS ORDERED: Polyethylene Glycol 3350 Powder 17 GM Packet PO PRN (17:02)
[2024-06-16] MEDS ORDERED: 50% Dextrose in Water 50 ML Syringe IVPUSH PRN (17:05)
[2024-06-16] MEDS ORDERED: Glucagon,Human Recombinant 1 MG Vial IM PRN (17:05)
[2024-06-16] MEDS: Morphine 4 MG/ML Syringe IVPUSH PRN (17:43)
[2024-06-16] MEDS: Gabapentin 300 MG Cap PO SCH (19:10)
[2024-06-16] MEDS: atorvaSTATin 40 MG Tab PO SCH (20:20)
[2024-06-16] MEDS: Apixaban 5 MG Tab PO SCH (20:21)
[2024-06-16] MEDS: Docusate Sodium 100 MG Cap PO SCH (20:21)
[2024-06-16] MEDS ORDERED: Albuterol/Ipratropium 3.0-0.5 MG/3 ML Neb Soln NEB PRN (21:16)
[2024-06-16 22:17] LABS: APPEARANCE,URINE CLEAR; BILIRUBIN,URINE NEGATIVE (NEGATIVE); COLOR,URINE YELLOW; GLUCOSE,URINE >=1000 mg/dL (NEGATIVE); KETONES,URINE NEGATIVE (NEGATIVE); LEUKOCYTE ESTERASE,URINE NEGATIVE (NEGATIVE); NITRITE,URINE NEGATIVE (NEGATIVE); OCCULT BLOOD,URINE NEGATIVE (NEGATIVE); PROTEIN,URINE NEGATIVE (NEGATIVE); UROBILINOGEN,URINE 0.2 EU/dL (<2.0)
[2024-06-17] MEDS: traMADol 50 MG Tab PO PRN (04:34)
[2024-06-17 05:52] LABS: BASOPHILS ABSOLUTE AUTO 0.03 K/uL (0.00-0.20); BASOPHILS PERCENT AUTO 0.4 % (0.0-1.0); EOSINOPHILS ABSOLUTE AUTO 0.09 K/uL (0.00-0.45); EOSINOPHILS PERCENT AUTO 1.1 % (0.0-6.0); HEMATOCRIT 35.9 % (37.0-47.0); HEMOGLOBIN 11.7 g/dL (12.0-16.0); IMMATURE GRAN ABSOLUTE AUTO 0.02 K/uL (0.00-0.05); IMMATURE GRAN PERCENT AUTO 0.2 % (0.0-0.4); LYMPHOCYTES ABSOLUTE AUTO 1.72 K/uL (1.00-4.80); LYMPHOCYTES PERCENT AUTO 20.6 % (24.0-44.0); MEAN CORPUSCULAR HEMOGLOBIN 28.5 pg (28.0-32.0); MEAN CORPUSCULAR HGB CONC 32.6 g/dL (32.0-36.0); MEAN CORPUSCULAR VOLUME 87.3 fL (83.0-99.0); MEAN PLATELET VOLUME 9.6 fL (9.4-12.3); NEUTROPHILS ABSOLUTE AUTO 5.98 K/uL (1.80-7.70); NEUTROPHILS PERCENT AUTO 71.7 % (41.0-71.0); PLATELET COUNT,PLT 229 K/uL (150-400); RED BLOOD CELL COUNT 4.11 M/uL (4.10-5.30); WHITE BLOOD CELL COUNT,WBC 8.34 K/uL (3.9-11.3)
[2024-06-17 06:17] LABS: CALCIUM 8.1 mg/dL (8.5-10.1); CARBON DIOXIDE,CO2 32.6 mmol/L (21.0-32.0); EST CRCL DRUG DOSING (CG) 51.66 mL/min; MAGNESIUM 1.9 mg/dL (1.8-2.4); POTASSIUM,K 3.8 mmol/L (3.5-5.1)
[2024-06-17] MEDS: Insulin Aspart 100 Units/ML 3 ML Pen SUBCUT SCH (07:20)
[2024-06-17] MEDS: Acetaminophen 325 MG Tab PO PRN (10:29)
[2024-06-18] MEDS: Temazepam 15 MG Cap PO PRN (00:13)
[2024-06-18 06:14] LABS: BASOPHILS ABSOLUTE AUTO 0.02 K/uL (0.00-0.20); BASOPHILS PERCENT AUTO 0.2 % (0.0-1.0); EOSINOPHILS ABSOLUTE AUTO 0.08 K/uL (0.00-0.45); EOSINOPHILS PERCENT AUTO 0.9 % (0.0-6.0); HEMATOCRIT 36.1 % (37.0-47.0); HEMOGLOBIN 12.2 g/dL (12.0-16.0); IMMATURE GRAN ABSOLUTE AUTO 0.02 K/uL (0.00-0.05); IMMATURE GRAN PERCENT AUTO 0.2 % (0.0-0.4); LYMPHOCYTES ABSOLUTE AUTO 1.41 K/uL (1.00-4.80); LYMPHOCYTES PERCENT AUTO 16.4 % (24.0-44.0); MEAN CORPUSCULAR HEMOGLOBIN 28.8 pg (28.0-32.0); MEAN CORPUSCULAR HGB CONC 33.8 g/dL (32.0-36.0); MEAN CORPUSCULAR VOLUME 85.1 fL (83.0-99.0); MEAN PLATELET VOLUME 9.3 fL (9.4-12.3); MONOCYTES ABSOLUTE AUTO 0.56 K/uL (0.00-0.80); MONOCYTES PERCENT AUTO 6.5 % (0.0-8.0); NEUTROPHILS ABSOLUTE AUTO 6.51 K/uL (1.80-7.70); NEUTROPHILS PERCENT AUTO 75.8 % (41.0-71.0); PLATELET COUNT,PLT 220 K/uL (150-400); RED BLOOD CELL COUNT 4.24 M/uL (4.10-5.30)
[2024-06-18 06:43] LABS: CALCIUM 8.1 mg/dL (8.5-10.1); CARBON DIOXIDE,CO2 27.7 mmol/L (21.0-32.0); CREATININE 0.7 mg/dL (0.6-1.0); EST CRCL DRUG DOSING (CG) 73.8 mL/min; MAGNESIUM 1.6 mg/dL (1.8-2.4); PHOSPHORUS 3.2 mg/dL (2.6-4.7); POTASSIUM,K 4.2 mmol/L (3.5-5.1)
[2024-06-18] MEDS ORDERED: Magnesium Sulfate/Water 2 GM/50 ML Premix Bag IV ONE (13:31)
[2024-06-18] MEDS: Magnesium Sulfate/Water Premix 2 GM in Premix Bag 1 BAG IV ONE (14:06)
[2024-06-19 06:32] LABS: BASOPHILS ABSOLUTE AUTO 0.03 K/uL (0.00-0.20); BASOPHILS PERCENT AUTO 0.4 % (0.0-1.0); EOSINOPHILS ABSOLUTE AUTO 0.08 K/uL (0.00-0.45); EOSINOPHILS PERCENT AUTO 1.1 % (0.0-6.0); HEMATOCRIT 36.4 % (37.0-47.0); IMMATURE GRAN ABSOLUTE AUTO 0.01 K/uL (0.00-0.05); IMMATURE GRAN PERCENT AUTO 0.1 % (0.0-0.4); LYMPHOCYTES PERCENT AUTO 13.8 % (24.0-44.0); MEAN CORPUSCULAR HEMOGLOBIN 28.4 pg (28.0-32.0); MEAN CORPUSCULAR VOLUME 86.3 fL (83.0-99.0); MEAN PLATELET VOLUME 9.3 fL (9.4-12.3); MONOCYTES ABSOLUTE AUTO 0.46 K/uL (0.00-0.80); MONOCYTES PERCENT AUTO 6.3 % (0.0-8.0); NEUTROPHILS ABSOLUTE AUTO 5.69 K/uL (1.80-7.70); NEUTROPHILS PERCENT AUTO 78.3 % (41.0-71.0); PLATELET COUNT,PLT 220 K/uL (150-400); RED BLOOD CELL COUNT 4.22 M/uL (4.10-5.30); WHITE BLOOD CELL COUNT,WBC 7.27 K/uL (3.9-11.3)
[2024-06-19 06:54] LABS: CALCIUM 8.4 mg/dL (8.5-10.1); CARBON DIOXIDE,CO2 31.8 mmol/L (21.0-32.0); CREATININE 0.7 mg/dL (0.6-1.0); EST CRCL DRUG DOSING (CG) 73.8 mL/min; POTASSIUM,K 4.2 mmol/L (3.5-5.1)
[2024-06-19] MEDS: Methocarbamol 750 MG Tab PO PRN (23:41)
[2024-06-19] MEDS: Gabapentin 300 MG Cap PO SCH (23:46)
[2024-06-20] MEDS: oxyCODONE 5 MG Tab PO PRN (11:31)
[2024-06-20 14:54] VITALS: BP 127/74; PULSE 88
== END 2024-06-20 14:45 | disposition home or self-care (01) | DRG 565 ==
LOC: MW.ED 11:52 → MW.MS 15:58
PROVIDERS: ADMIT Internal Medicine; ATTEND Internal Medicine
DX: M25.462 Effusion, left knee (principal); J98.11 Atelectasis; S22.31XA Fracture of one rib, right side, initial encounter for closed fracture; I11.0 Hypertensive heart disease with heart failure; M25.062 Hemarthrosis, left knee; I50.9 Heart failure, unspecified; J44.9 Chronic obstructive pulmonary disease, unspecified; E11.9 Type 2 diabetes mellitus without complications; F17.210 Nicotine dependence, cigarettes, uncomplicated; E11.51 Type 2 diabetes mellitus with diabetic peripheral angiopathy without gangrene; I25.10 Atherosclerotic heart disease of native coronary artery without angina pectoris; Z79.899 Other long term (current) drug therapy; Z79.01 Long term (current) use of anticoagulants; Z79.84 Long term (current) use of oral hypoglycemic drugs; Z88.6 Allergy status to analgesic agent; R09.02 Hypoxemia; Z75.8 Other problems related to medical facilities and other health care; W19.XXXA Unspecified fall, initial encounter; F32.A Depression, unspecified; K21.9 Gastro-esophageal reflux disease without esophagitis; F41.9 Anxiety disorder, unspecified; G89.29 Other chronic pain; I25.2 Old myocardial infarction; Z87.891 Personal history of nicotine dependence; Z79.4 Long term (current) use of insulin; Z88.8 Allergy status to other drugs, medicaments and biological substances; Z88.1 Allergy status to other antibiotic agents; Z90.49 Acquired absence of other specified parts of digestive tract; Z90.710 Acquired absence of both cervix and uterus; W18.30XA Fall on same level, unspecified, initial encounter; Y92.89 Other specified places as the place of occurrence of the external cause
CPT/HCPCS: 36415; 71046; 73562; 80053; 82803; 83690; 83880; 84484; 85025; 85610; 87428; 93005 ×2; A9270; J2270; J2405; 73501-26-LT; 73501-LT; 73590-26-LT; 73590-LT; 80048; 81003; 82947; 83735; 84100; 93010; 93971-26-LT; 93971-LT; 96365; 96366; 96375; 97110-GP; 97162-GP; 97530-GP; 99222; 99231; 99232; 99238; 99284; 99285-25; J1815-GY; J3475

== ENCOUNTER 2024-07-17 17:52 | Emergency (ER) | payer MEDICARE, MEDICAID ==
[2024-07-17] MEDS ORDERED: Sodium Chloride 0.9% 2.5 ML Syringe FLUSH PRN (18:22)
[2024-07-17] MEDS ORDERED: Sodium Chloride 0.9% 10 ML Syringe FLUSH PRN (18:22)
[2024-07-17] MEDS: Albuterol/Ipratropium 3.0-0.5 MG/3 ML Neb Soln NEB ONE (18:46)
[2024-07-17 19:05] LABS: BASOPHILS ABSOLUTE AUTO 0.03 K/uL (0.00-0.20); BASOPHILS PERCENT AUTO 0.3 % (0.0-1.0); EOSINOPHILS ABSOLUTE AUTO 0.09 K/uL (0.00-0.45); EOSINOPHILS PERCENT AUTO 0.8 % (0.0-6.0); HEMATOCRIT 35.8 % (37.0-47.0); HEMOGLOBIN 12.4 g/dL (12.0-16.0); IMMATURE GRAN ABSOLUTE AUTO 0.03 K/uL (0.00-0.05); IMMATURE GRAN PERCENT AUTO 0.3 % (0.0-0.4); LYMPHOCYTES ABSOLUTE AUTO 2.34 K/uL (1.00-4.80); LYMPHOCYTES PERCENT AUTO 21.6 % (24.0-44.0); MEAN CORPUSCULAR HGB CONC 34.6 g/dL (32.0-36.0); MEAN CORPUSCULAR VOLUME 83.8 fL (83.0-99.0); MEAN PLATELET VOLUME 9.6 fL (9.4-12.3); MONOCYTES ABSOLUTE AUTO 0.56 K/uL (0.00-0.80); MONOCYTES PERCENT AUTO 5.2 % (0.0-8.0); NEUTROPHILS PERCENT AUTO 71.8 % (41.0-71.0); NRBC ABSOLUTE 0.02 K/uL (0.00-0.02); NRBC PERCENT 0.2 /100WBC (0.0-0.2); PLATELET COUNT,PLT 243 K/uL (150-400); RED BLOOD CELL COUNT 4.27 M/uL (4.10-5.30); WHITE BLOOD CELL COUNT,WBC 10.85 K/uL (3.9-11.3)
[2024-07-17 19:38] LABS: A/G RATIO 0.8 (0.9-1.6); BILIRUBIN TOTAL 0.6 mg/dL (0.2-1.0); CALCIUM 8.2 mg/dL (8.5-10.1); CARBON DIOXIDE,CO2 27.4 mmol/L (21.0-32.0); CREATININE 1.3 mg/dL (0.6-1.0); EST CRCL DRUG DOSING (CG) 39.74 mL/min; POTASSIUM,K 3.5 mmol/L (3.5-5.1); PROTEIN TOTAL,TP 6.8 g/dL (6.4-8.2)
[2024-07-17] MEDS: Benzonatate 100 MG Cap PO ONE (20:43)
[2024-07-17] MEDS: Azithromycin 250 MG Tab PO STA (20:43)
[2024-07-17 20:45] VITALS: BP 115/76; PULSE 97
== END 2024-07-17 20:57 | disposition home or self-care (01) ==
LOC: MW.ED 17:52
DX: J44.1 Chronic obstructive pulmonary disease with (acute) exacerbation (principal); J06.9 Acute upper respiratory infection, unspecified; I11.0 Hypertensive heart disease with heart failure; E78.00 Pure hypercholesterolemia, unspecified; I25.10 Atherosclerotic heart disease of native coronary artery without angina pectoris; J44.9 Chronic obstructive pulmonary disease, unspecified; E11.9 Type 2 diabetes mellitus without complications; F17.210 Nicotine dependence, cigarettes, uncomplicated; Z88.6 Allergy status to analgesic agent; Z88.1 Allergy status to other antibiotic agents; Z88.8 Allergy status to other drugs, medicaments and biological substances; Z88.5 Allergy status to narcotic agent; Z79.01 Long term (current) use of anticoagulants; Z79.899 Other long term (current) drug therapy
CPT/HCPCS: 36415; 71045; 80053; 83880; 85025; 87428; 99285; A9270; 93005; 93010; 99283; J7620-GY

== ENCOUNTER 2024-07-30 14:34 | Emergency (ER) | payer MEDICARE, MEDICAID ==
[2024-07-30] MEDS ORDERED: Sodium Chloride 0.9% 20 ML SDV IV PRN (15:12)
[2024-07-30] MEDS ORDERED: Sodium Chloride 0.9% 2.5 ML Syringe FLUSH PRN (15:12)
[2024-07-30] MEDS ORDERED: Sodium Chloride 0.9% 10 ML Syringe FLUSH PRN (15:12)
[2024-07-30 16:09] LABS: BASOPHILS ABSOLUTE AUTO 0.02 K/uL (0.00-0.20); BASOPHILS PERCENT AUTO 0.3 % (0.0-1.0); EOSINOPHILS ABSOLUTE AUTO 0.11 K/uL (0.00-0.45); EOSINOPHILS PERCENT AUTO 1.4 % (0.0-6.0); HEMATOCRIT 41.6 % (37.0-47.0); HEMOGLOBIN 14.1 g/dL (12.0-16.0); IMMATURE GRAN ABSOLUTE AUTO 0.02 K/uL (0.00-0.05); IMMATURE GRAN PERCENT AUTO 0.3 % (0.0-0.4); LYMPHOCYTES ABSOLUTE AUTO 1.66 K/uL (1.00-4.80); LYMPHOCYTES PERCENT AUTO 21.3 % (24.0-44.0); MEAN CORPUSCULAR HEMOGLOBIN 28.8 pg (28.0-32.0); MEAN CORPUSCULAR HGB CONC 33.9 g/dL (32.0-36.0); MEAN CORPUSCULAR VOLUME 84.9 fL (83.0-99.0); MEAN PLATELET VOLUME 8.5 fL (9.4-12.3); MONOCYTES ABSOLUTE AUTO 0.46 K/uL (0.00-0.80); MONOCYTES PERCENT AUTO 5.9 % (0.0-8.0); NEUTROPHILS ABSOLUTE AUTO 5.51 K/uL (1.80-7.70); NEUTROPHILS PERCENT AUTO 70.8 % (41.0-71.0); PLATELET COUNT,PLT 355 K/uL (150-400); WHITE BLOOD CELL COUNT,WBC 7.78 K/uL (3.9-11.3)
[2024-07-30] MEDS: fentaNYL 50 MCG/ML SDV IVPUSH ONE ×2 (16:11→18:13)
[2024-07-30 16:22] LABS: INR 1.07 (0.86-1.11); PTT,PARTIAL THROMBOPLSTIN TIME 28.5 SEC (23.9-30.7)
[2024-07-30 16:33] LABS: A/G RATIO 0.9 (0.9-1.6); ALANINE AMINOTRANSFERASE,ALT 19 IU/L (14-63); ALBUMIN 3.3 g/dL (3.4-5.0); ALKALINE PHOSPHATASE 239 U/L (46-116); ASPARTATE AMNIOTRANSFERASE,AST 13 IU/L (15-37); BILIRUBIN TOTAL 0.4 mg/dL (0.2-1.0); BLOOD UREA NITROGEN,BUN 9 mg/dL (7.0-18.0); CALCIUM 8.5 mg/dL (8.5-10.1); CARBON DIOXIDE,CO2 28.4 mmol/L (21.0-32.0); CHLORIDE,CL 97 mmol/L (98-107); CREATININE 1.3 mg/dL (0.6-1.0); ESTIMATED GFR 47 mL/min (>60); GLUCOSE RANDOM 231 mg/dL (74-106); LACTIC ACID 1.9 mmol/L (0.4-2.0); POTASSIUM,K 3.7 mmol/L (3.5-5.1); PROTEIN TOTAL,TP 7.1 g/dL (6.4-8.2); SODIUM,NA 137 mmol/L (136-145)
[2024-07-30] MEDS: Ondansetron 4 MG/2 ML SDV IVPUSH ONE (16:35)
[2024-07-30] MEDS: Iopamidol 755 MG/ML 500 ML Multipack Bottle IVPUSH STA (17:08)
[2024-07-30] MEDS: Sodium Chloride 0.9% 500 ML IV SCH (17:25)
[2024-07-30 17:40] LABS: APPEARANCE,URINE CLEAR; BILIRUBIN,URINE NEGATIVE (NEGATIVE); COLOR,URINE YELLOW; GLUCOSE,URINE >=1000 mg/dL (NEGATIVE); KETONES,URINE NEGATIVE (NEGATIVE); LEUKOCYTE ESTERASE,URINE NEGATIVE (NEGATIVE); NITRITE,URINE NEGATIVE (NEGATIVE); OCCULT BLOOD,URINE NEGATIVE (NEGATIVE); PROTEIN,URINE NEGATIVE (NEGATIVE); UROBILINOGEN,URINE 0.2 EU/dL (<2.0)
[2024-07-30] MEDS ORDERED: Naloxone 0.4 MG/ML SDV IVPUSH PRN ×2 (17:44→20:06)
[2024-07-30] MEDS: Lidocaine 4% Patch TOP PRN (18:13)
[2024-07-30] MEDS: Morphine 2 MG/ML SYRINGE IVPUSH ONE (20:12)
[2024-07-30 20:15] VITALS: BP 140/81; PULSE 88
== END 2024-07-30 21:30 | disposition left against medical advice (07) ==
LOC: MW.ED 14:34
DX: S20.211A Contusion of right front wall of thorax, initial encounter (principal); M79.601 Pain in right arm; I11.0 Hypertensive heart disease with heart failure; I50.9 Heart failure, unspecified; J44.9 Chronic obstructive pulmonary disease, unspecified; E11.9 Type 2 diabetes mellitus without complications; I25.10 Atherosclerotic heart disease of native coronary artery without angina pectoris; F17.210 Nicotine dependence, cigarettes, uncomplicated; E78.00 Pure hypercholesterolemia, unspecified; Z88.5 Allergy status to narcotic agent; Z88.8 Allergy status to other drugs, medicaments and biological substances; Z88.6 Allergy status to analgesic agent; Z79.01 Long term (current) use of anticoagulants; Z79.899 Other long term (current) drug therapy; Z79.51 Long term (current) use of inhaled steroids; W00.0XXA Fall on same level due to ice and snow, initial encounter; Y93.89 Activity, other specified
CPT/HCPCS: 36415; 70450; 71110; 71260; 72125; 72128; 72131; 73000; 73030; 73110; 73130; 74177; 80053; 81003; 83605; 83735; 84484; 85025; 85610; 85730; 93005; 96361; 96374; 96375; 96376; 99284; A9270; J2270; J2405; J3010; J7040; Q9967; 93010; 99285

== ENCOUNTER 2024-08-11 20:22 | Emergency (ER) | payer MEDICAID, MEDICARE ==
[2024-08-11 21:20] LABS: BASOPHILS ABSOLUTE AUTO 0.03 K/uL (0.00-0.20); BASOPHILS PERCENT AUTO 0.3 % (0.0-1.0); EOSINOPHILS ABSOLUTE AUTO 0.09 K/uL (0.00-0.45); EOSINOPHILS PERCENT AUTO 0.9 % (0.0-6.0); HEMATOCRIT 36.4 % (37.0-47.0); HEMOGLOBIN 12.1 g/dL (12.0-16.0); IMMATURE GRAN ABSOLUTE AUTO 0.01 K/uL (0.00-0.05); IMMATURE GRAN PERCENT AUTO 0.1 % (0.0-0.4); MEAN CORPUSCULAR HEMOGLOBIN 28.7 pg (28.0-32.0); MEAN CORPUSCULAR HGB CONC 33.2 g/dL (32.0-36.0); MEAN CORPUSCULAR VOLUME 86.3 fL (83.0-99.0); MEAN PLATELET VOLUME 9.7 fL (9.4-12.3); MONOCYTES ABSOLUTE AUTO 0.73 K/uL (0.00-0.80); MONOCYTES PERCENT AUTO 7.3 % (0.0-8.0); NEUTROPHILS ABSOLUTE AUTO 7.25 K/uL (1.80-7.70); NEUTROPHILS PERCENT AUTO 72.4 % (41.0-71.0); PLATELET COUNT,PLT 220 K/uL (150-400); RED BLOOD CELL COUNT 4.22 M/uL (4.10-5.30); WHITE BLOOD CELL COUNT,WBC 10.01 K/uL (3.9-11.3)
[2024-08-11 21:39] LABS: CALCIUM 8.3 mg/dL (8.5-10.1); CARBON DIOXIDE,CO2 29.7 mmol/L (21.0-32.0); CREATININE 1.1 mg/dL (0.6-1.0); EST CRCL DRUG DOSING (CG) 46.96 mL/min; POTASSIUM,K 4.1 mmol/L (3.5-5.1)
[2024-08-11 22:11] VITALS: BP 114/65; PULSE 99
== END 2024-08-11 22:11 | disposition home or self-care (01) ==
LOC: MW.ED 20:22
DX: S79.822A Other specified injuries of left thigh, initial encounter (principal); I11.0 Hypertensive heart disease with heart failure; I50.9 Heart failure, unspecified; I25.10 Atherosclerotic heart disease of native coronary artery without angina pectoris; E78.00 Pure hypercholesterolemia, unspecified; J44.9 Chronic obstructive pulmonary disease, unspecified; K21.9 Gastro-esophageal reflux disease without esophagitis; E11.9 Type 2 diabetes mellitus without complications; Z88.6 Allergy status to analgesic agent; Z88.4 Allergy status to anesthetic agent; Z88.8 Allergy status to other drugs, medicaments and biological substances; Z79.01 Long term (current) use of anticoagulants; Z79.51 Long term (current) use of inhaled steroids; Z79.899 Other long term (current) drug therapy; W19.XXXA Unspecified fall, initial encounter
CPT/HCPCS: 36415; 73502-26-LT; 73502-LT; 80048; 83735; 85025; 99283

== ENCOUNTER 2024-08-16 11:58 | Emergency (ER) | payer MEDICAID, MEDICARE ==
[2024-08-16 12:37] VITALS: BP 159/67
[2024-08-16] MEDS: Cyclobenzaprine 10 MG Tab PO ONE (14:15)
[2024-08-16 14:18] VITALS: PULSE 56
== END 2024-08-16 14:17 | disposition home or self-care (01) ==
LOC: MW.ED 11:58
DX: M79.652 Pain in left thigh (principal); I11.0 Hypertensive heart disease with heart failure; I50.9 Heart failure, unspecified; I25.10 Atherosclerotic heart disease of native coronary artery without angina pectoris; E78.00 Pure hypercholesterolemia, unspecified; J44.9 Chronic obstructive pulmonary disease, unspecified; K21.9 Gastro-esophageal reflux disease without esophagitis; E11.9 Type 2 diabetes mellitus without complications; Z79.899 Other long term (current) drug therapy; Z79.01 Long term (current) use of anticoagulants; Z88.5 Allergy status to narcotic agent; Z88.6 Allergy status to analgesic agent; Z88.8 Allergy status to other drugs, medicaments and biological substances; Z88.4 Allergy status to anesthetic agent; Z75.8 Other problems related to medical facilities and other health care
CPT/HCPCS: 70450; 93971; 99283; A9270

== ENCOUNTER 2024-09-18 19:34 | Emergency (ER) | payer MEDICARE, MEDICAID ==
[2024-09-18] MEDS: Orphenadrine 60 MG/2 ML Inj IM ONE (20:00)
[2024-09-18] MEDS: Ketorolac 60 MG/2 ML SDV IM ONE (20:01)
[2024-09-18 20:18] VITALS: BP 116/64; PULSE 97
== END 2024-09-18 20:18 | disposition home or self-care (01) ==
LOC: MW.ED 19:34
DX: S83.92XA Sprain of unspecified site of left knee, initial encounter (principal); I11.0 Hypertensive heart disease with heart failure; I50.9 Heart failure, unspecified; K21.9 Gastro-esophageal reflux disease without esophagitis; E78.00 Pure hypercholesterolemia, unspecified; E11.9 Type 2 diabetes mellitus without complications; Z88.8 Allergy status to other drugs, medicaments and biological substances; Z79.899 Other long term (current) drug therapy; W19.XXXA Unspecified fall, initial encounter
CPT/HCPCS: 96372; 99283; J1885; J2360; 99282

== ENCOUNTER 2024-10-11 17:14 | Emergency (ER) | payer MEDICARE, MEDICAID ==
[2024-10-11 18:11] LABS: BASOPHILS ABSOLUTE AUTO 0.03 K/uL (0.00-0.20); BASOPHILS PERCENT AUTO 0.4 % (0.0-1.0); EOSINOPHILS ABSOLUTE AUTO 0.06 K/uL (0.00-0.45); EOSINOPHILS PERCENT AUTO 0.8 % (0.0-6.0); HEMATOCRIT 39.7 % (37.0-47.0); HEMOGLOBIN 13.4 g/dL (12.0-16.0); IMMATURE GRAN ABSOLUTE AUTO 0.02 K/uL (0.00-0.05); IMMATURE GRAN PERCENT AUTO 0.3 % (0.0-0.4); LYMPHOCYTES ABSOLUTE AUTO 1.24 K/uL (1.00-4.80); LYMPHOCYTES PERCENT AUTO 16.2 % (24.0-44.0); MEAN CORPUSCULAR HEMOGLOBIN 28.8 pg (28.0-32.0); MEAN CORPUSCULAR HGB CONC 33.8 g/dL (32.0-36.0); MEAN CORPUSCULAR VOLUME 85.4 fL (83.0-99.0); MEAN PLATELET VOLUME 9.8 fL (9.4-12.3); MONOCYTES ABSOLUTE AUTO 0.45 K/uL (0.00-0.80); MONOCYTES PERCENT AUTO 5.9 % (0.0-8.0); NEUTROPHILS ABSOLUTE AUTO 5.84 K/uL (1.80-7.70); NEUTROPHILS PERCENT AUTO 76.4 % (41.0-71.0); NRBC ABSOLUTE 0.05 K/uL (0.00-0.02); NRBC PERCENT 0.7 /100WBC (0.0-0.2); PLATELET COUNT,PLT 285 K/uL (150-400); RED BLOOD CELL COUNT 4.65 M/uL (4.10-5.30); WHITE BLOOD CELL COUNT,WBC 7.64 K/uL (3.9-11.3)
[2024-10-11 18:39] LABS: A/G RATIO 0.7 (0.9-1.6); ALBUMIN 2.9 g/dL (3.4-5.0); BILIRUBIN TOTAL 0.5 mg/dL (0.2-1.0); CALCIUM 8.6 mg/dL (8.5-10.1); CARBON DIOXIDE,CO2 29.1 mmol/L (21.0-32.0); CREATININE 1.1 mg/dL (0.6-1.0); EST CRCL DRUG DOSING (CG) 46.38 mL/min; POTASSIUM,K 4.4 mmol/L (3.5-5.1); PROTEIN TOTAL,TP 7.1 g/dL (6.4-8.2)
[2024-10-11] MEDS: oxyCODONE 5 MG Tab PO PRN (19:11)
[2024-10-11 19:13] LABS: INR 0.96 (0.86-1.11)
[2024-10-11] MEDS: Acetaminophen 500 MG Tab PO ONE (19:13)
[2024-10-11] MEDS: Iopamidol 755 MG/ML 500 ML Multipack Bottle IVPUSH STA (19:22)
[2024-10-11] MEDS ORDERED: Sodium Chloride 0.9% 1,000 ML IV SCH (20:00)
[2024-10-11] MEDS: Ondansetron 4 MG/2 ML SDV IVPUSH ONE (20:36)
[2024-10-11 20:53] VITALS: BP 133/76; PULSE 96
== END 2024-10-11 20:53 | disposition home or self-care (01) ==
LOC: MW.ED 17:14
DX: S22.31XA Fracture of one rib, right side, initial encounter for closed fracture (principal); S20.211A Contusion of right front wall of thorax, initial encounter; S39.91XA Unspecified injury of abdomen, initial encounter; S09.90XA Unspecified injury of head, initial encounter; E11.65 Type 2 diabetes mellitus with hyperglycemia; I11.0 Hypertensive heart disease with heart failure; I50.9 Heart failure, unspecified; J44.9 Chronic obstructive pulmonary disease, unspecified; K21.9 Gastro-esophageal reflux disease without esophagitis; I25.10 Atherosclerotic heart disease of native coronary artery without angina pectoris; Z79.899 Other long term (current) drug therapy; Z88.8 Allergy status to other drugs, medicaments and biological substances; W01.0XXA Fall on same level from slipping, tripping and stumbling without subsequent striking against object, initial encounter
CPT/HCPCS: 36415; 70450; 71045; 71260; 73560; 74177; 80053; 85025; 85610; 93005; 96374; 99284; A9270; J2405; Q9967; 93010

== ENCOUNTER 2024-11-17 20:22 | Emergency (ER) | payer MEDICARE, MEDICAID ==
[2024-11-17 20:59] LABS: APPEARANCE,URINE CLEAR; BILIRUBIN,URINE NEGATIVE (NEGATIVE); COLOR,URINE YELLOW; GLUCOSE,URINE >=1000 mg/dL (NEGATIVE); KETONES,URINE NEGATIVE (NEGATIVE); LEUKOCYTE ESTERASE,URINE NEGATIVE (NEGATIVE); NITRITE,URINE NEGATIVE (NEGATIVE); OCCULT BLOOD,URINE NEGATIVE (NEGATIVE); PROTEIN,URINE NEGATIVE (NEGATIVE); UROBILINOGEN,URINE 0.2 EU/dL (<2.0)
[2024-11-17] MEDS: Ondansetron 4 MG/2 ML SDV IVPUSH ONE (21:11)
[2024-11-17] MEDS: Ketorolac 30 MG/ML SDV IVPUSH ONE (21:12)
[2024-11-17 21:27] LABS: BASOPHILS ABSOLUTE AUTO 0.03 K/uL (0.00-0.20); BASOPHILS PERCENT AUTO 0.3 % (0.0-1.0); EOSINOPHILS ABSOLUTE AUTO 0.11 K/uL (0.00-0.45); HEMATOCRIT 42.5 % (37.0-47.0); HEMOGLOBIN 14.1 g/dL (12.0-16.0); IMMATURE GRAN ABSOLUTE AUTO 0.02 K/uL (0.00-0.05); IMMATURE GRAN PERCENT AUTO 0.2 % (0.0-0.4); LYMPHOCYTES ABSOLUTE AUTO 2.01 K/uL (1.00-4.80); LYMPHOCYTES PERCENT AUTO 18.8 % (24.0-44.0); MEAN CORPUSCULAR HEMOGLOBIN 28.5 pg (28.0-32.0); MEAN CORPUSCULAR HGB CONC 33.2 g/dL (32.0-36.0); MEAN CORPUSCULAR VOLUME 85.9 fL (83.0-99.0); MONOCYTES ABSOLUTE AUTO 0.58 K/uL (0.00-0.80); MONOCYTES PERCENT AUTO 5.4 % (0.0-8.0); NEUTROPHILS ABSOLUTE AUTO 7.94 K/uL (1.80-7.70); NEUTROPHILS PERCENT AUTO 74.3 % (41.0-71.0); PLATELET COUNT,PLT 323 K/uL (150-400); RED BLOOD CELL COUNT 4.95 M/uL (4.10-5.30); WHITE BLOOD CELL COUNT,WBC 10.69 K/uL (3.9-11.3)
[2024-11-17] MEDS ORDERED: Morphine 4 MG/ML Syringe IVPUSH ONE (21:42)
[2024-11-17] MEDS ORDERED: Acetaminophen 500 MG Tab PO ONE (21:42)
[2024-11-17] MEDS ORDERED: Ondansetron 4 MG/2 ML SDV IVPUSH ONE (21:42)
[2024-11-17 21:48] LABS: A/G RATIO 0.8 (0.9-1.6); ALBUMIN 3.1 g/dL (3.4-5.0); BILIRUBIN TOTAL 0.5 mg/dL (0.2-1.0); CALCIUM 8.8 mg/dL (8.5-10.1); CARBON DIOXIDE,CO2 28.5 mmol/L (21.0-32.0); CREATININE 0.9 mg/dL (0.6-1.0); EST CRCL DRUG DOSING (CG) 56.68 mL/min; POTASSIUM,K 3.6 mmol/L (3.5-5.1); PROTEIN TOTAL,TP 6.8 g/dL (6.4-8.2)
[2024-11-17] MEDS ORDERED: Morphine 2 MG/ML SYRINGE IVPUSH PRN (23:08)
[2024-11-17] MEDS: Morphine 2 MG/ML SYRINGE IVPUSH ONE (23:19)
[2024-11-17] MEDS: Iopamidol 755 MG/ML 500 ML Multipack Bottle IVPUSH ONE (23:29)
[2024-11-18 00:19] VITALS: BP 120/86; PULSE 89
== END 2024-11-18 00:19 | disposition home or self-care (01) ==
LOC: MW.ED 20:22
DX: M54.6 Pain in thoracic spine (principal); G89.29 Other chronic pain; I11.0 Hypertensive heart disease with heart failure; I50.9 Heart failure, unspecified; J44.9 Chronic obstructive pulmonary disease, unspecified; E11.9 Type 2 diabetes mellitus without complications; I25.10 Atherosclerotic heart disease of native coronary artery without angina pectoris; E78.00 Pure hypercholesterolemia, unspecified; Z88.6 Allergy status to analgesic agent; Z88.1 Allergy status to other antibiotic agents; Z88.8 Allergy status to other drugs, medicaments and biological substances; Z91.041 Radiographic dye allergy status; Z79.01 Long term (current) use of anticoagulants; Z79.899 Other long term (current) drug therapy; Z79.51 Long term (current) use of inhaled steroids
CPT/HCPCS: 36415; 74177; 80053; 81003; 83690; 85025; 96374; 96375; 99284; J2270; J2405; Q9967; J1885

== ENCOUNTER 2024-12-01 16:07 | Emergency (ER) | payer MEDICARE, MEDICAID ==
[2024-12-01 17:46] VITALS: BP 115/68; PULSE 90
[2024-12-01] MEDS: Acetaminophen/oxyCODONE 325-5 MG Tab PO ONE (19:42)
== END 2024-12-01 21:52 | disposition home or self-care (01) ==
LOC: MW.ED 16:07
DX: S70.02XA Contusion of left hip, initial encounter (principal); G89.4 Chronic pain syndrome; I25.10 Atherosclerotic heart disease of native coronary artery without angina pectoris; I11.0 Hypertensive heart disease with heart failure; I50.9 Heart failure, unspecified; K21.9 Gastro-esophageal reflux disease without esophagitis; E78.00 Pure hypercholesterolemia, unspecified; E11.9 Type 2 diabetes mellitus without complications; Z88.6 Allergy status to analgesic agent; Z88.1 Allergy status to other antibiotic agents; Z88.5 Allergy status to narcotic agent; Z88.8 Allergy status to other drugs, medicaments and biological substances; Z79.01 Long term (current) use of anticoagulants; Z79.899 Other long term (current) drug therapy; Z79.51 Long term (current) use of inhaled steroids; W18.39XA Other fall on same level, initial encounter; Y93.89 Activity, other specified
CPT/HCPCS: 72131; 72192; 73502; 99284; A9270; 99283

== ENCOUNTER 2024-12-29 19:17 | Emergency (ER) | payer MEDICARE, MEDICAID ==
[2024-12-29] MEDS: Acetaminophen/oxyCODONE 325-5 MG Tab PO ONE (20:38)
[2024-12-29 20:43] VITALS: BP 120/74; PULSE 74
== END 2024-12-29 20:43 | disposition home or self-care (01) ==
LOC: MW.ED 19:17
DX: S20.211A Contusion of right front wall of thorax, initial encounter (principal); I11.0 Hypertensive heart disease with heart failure; I50.9 Heart failure, unspecified; I25.10 Atherosclerotic heart disease of native coronary artery without angina pectoris; E78.00 Pure hypercholesterolemia, unspecified; J44.9 Chronic obstructive pulmonary disease, unspecified; K21.9 Gastro-esophageal reflux disease without esophagitis; E11.9 Type 2 diabetes mellitus without complications; F17.200 Nicotine dependence, unspecified, uncomplicated; Z88.5 Allergy status to narcotic agent; Z88.6 Allergy status to analgesic agent; Z88.8 Allergy status to other drugs, medicaments and biological substances; Z88.4 Allergy status to anesthetic agent; Z79.01 Long term (current) use of anticoagulants; Z79.51 Long term (current) use of inhaled steroids; Z79.899 Other long term (current) drug therapy; Z75.3 Unavailability and inaccessibility of health-care facilities; W01.198A Fall on same level from slipping, tripping and stumbling with subsequent striking against other object, initial encounter
CPT/HCPCS: 71046; 99283; A9270; 99284

== ENCOUNTER 2025-01-01 10:11 | Emergency (ER) | payer MEDICARE, MEDICAID ==
[2025-01-01] MEDS: Acetaminophen/HYDROcodone 325-5 MG Tab PO ONE (10:40)
[2025-01-01 12:45] VITALS: BP 126/78; PULSE 68
== END 2025-01-01 12:45 | disposition home or self-care (01) ==
LOC: MW.ED 10:11
DX: R07.89 Other chest pain (principal); I25.10 Atherosclerotic heart disease of native coronary artery without angina pectoris; E78.00 Pure hypercholesterolemia, unspecified; I11.0 Hypertensive heart disease with heart failure; I50.9 Heart failure, unspecified; E11.9 Type 2 diabetes mellitus without complications; F17.210 Nicotine dependence, cigarettes, uncomplicated; Z88.6 Allergy status to analgesic agent; Z88.5 Allergy status to narcotic agent; Z88.8 Allergy status to other drugs, medicaments and biological substances; Z91.041 Radiographic dye allergy status; Z79.899 Other long term (current) drug therapy; Z79.01 Long term (current) use of anticoagulants; Z79.51 Long term (current) use of inhaled steroids
CPT/HCPCS: 71250; 99283; A9270; 99284

== ENCOUNTER 2025-01-20 19:31 | Emergency (ER) | payer MEDICARE, MEDICAID ==
[2025-01-20 22:01] VITALS: BP 154/90; PULSE 82
== END 2025-01-20 22:00 | disposition home or self-care (01) ==
LOC: MW.ED 19:31
DX: S22.41XA Multiple fractures of ribs, right side, initial encounter for closed fracture (principal); I25.10 Atherosclerotic heart disease of native coronary artery without angina pectoris; E78.00 Pure hypercholesterolemia, unspecified; I11.0 Hypertensive heart disease with heart failure; J44.9 Chronic obstructive pulmonary disease, unspecified; E11.9 Type 2 diabetes mellitus without complications; F17.210 Nicotine dependence, cigarettes, uncomplicated; K21.9 Gastro-esophageal reflux disease without esophagitis; Z75.3 Unavailability and inaccessibility of health-care facilities; Z88.6 Allergy status to analgesic agent; Z88.8 Allergy status to other drugs, medicaments and biological substances; Z88.1 Allergy status to other antibiotic agents; Z88.5 Allergy status to narcotic agent; Z91.041 Radiographic dye allergy status; Z79.899 Other long term (current) drug therapy; Z79.01 Long term (current) use of anticoagulants; Z79.85 Long-term (current) use of injectable non-insulin antidiabetic drugs; Z79.51 Long term (current) use of inhaled steroids; R91.1 Solitary pulmonary nodule; X58.XXXA Exposure to other specified factors, initial encounter; Y93.89 Activity, other specified
CPT/HCPCS: 71101; 99284; A9270

== ENCOUNTER 2025-01-21 13:55 | Emergency (ER) | payer MEDICARE, MEDICAID ==
[2025-01-21 15:14] VITALS: BP 116/72; PULSE 93
== END 2025-01-21 15:15 | disposition home or self-care (01) ==
LOC: MW.ED 13:55
DX: S22.39XA Fracture of one rib, unspecified side, initial encounter for closed fracture (principal); I11.0 Hypertensive heart disease with heart failure; E78.00 Pure hypercholesterolemia, unspecified; I50.9 Heart failure, unspecified; K21.9 Gastro-esophageal reflux disease without esophagitis; E11.9 Type 2 diabetes mellitus without complications; Z88.8 Allergy status to other drugs, medicaments and biological substances; Z79.899 Other long term (current) drug therapy; X58.XXXA Exposure to other specified factors, initial encounter
CPT/HCPCS: 99283